=== PATIENT | female | born 1935 | race African-American/Black ===

== ENCOUNTER 2018-06-09 15:48 | Inpatient (IN) | payer MEDICARE, MEDICAID ==
[~2018-06-09] VITALS: Ht 160 cm; Wt 54.0 kg
[2018-06-09] MEDS ORDERED: PIPERACILLIN/TAZ 3.375G PREMIX 50 ML IV ONE (16:45)
[2018-06-09] MEDS ORDERED: SODIUM CHLORIDE 0.9% 1000ML BAG (SEPSIS BOLUS) IV ONE (16:45)
[2018-06-09] MEDS ORDERED: VANCOMYCIN 1 G PREMIX 200 ML IV ONE (16:45)
[2018-06-09 17:47] LABS: BASOPHILS % 1.1 % (0.0-2.0); EOSINOPHILS % 0.8 % (0.0-5.0); HEMATOCRIT. 34.9 % (36.0-48.0); HEMOGLOBIN. 11.3 g/dL (12.0-16.0); LYMPHOCYTES % 31.5 % (20.0-50.0); MEAN CORPUSCULAR HEMOGLOBIN 28.9 pg (28.0-32.0); MEAN CORPUSCULAR VOLUME 88.8 fL (81.0-99.0); MEAN PLATELET VOLUME 8.6 fl (7.4-10.4); MONOCYTES % 12.3 % (2.0-8.0); NEUTROPHILS % 54.3 % (40.0-76.0); PLATELET 249 x1000/uL (130-400); RED BLOOD CELL COUNT 3.93 mill/uL (4.2-5.4); RED CELL DISTRIBUTION WIDTH 15.1 % (11.6-14.6)
[2018-06-09 17:55] LABS: CHLORIDE 107 mEq/L (98-107); INR 1.3; PROTHROMBIN TIME 12.7 sec (9.1-11.1)
[2018-06-09] MEDS ORDERED: IPRATROPIUM/ALBUTEROL 0.5-3(2.5)MG/3ML NEB INH PRN (18:45)
[2018-06-09] MEDS ORDERED: GUAIFENESIN 200MG/10ML SUGAR FREE UDC PO PRN (18:45)
[2018-06-09] MEDS ORDERED: ONDANSETRON HCL 4MG/2ML INJ IV PRN (18:45)
[2018-06-09] MEDS ORDERED: DOCUSATE SODIUM 100MG CAPSULE PO PRN (18:45)
[2018-06-09] MEDS ORDERED: MAGNESIUM/ALUMINUM HYDROXIDE/SIMETHICONE 30ML UDC PO PRN (18:45)
[2018-06-09] MEDS ORDERED: NITROGLYCERIN 0.4MG TABLET SL SL PRN (18:45)
[2018-06-09] MEDS: MORPHINE SULFATE 4 MG/ML CPJ (NOT FOR IM USE) IV PRN (20:38)
[2018-06-09] MEDS ORDERED: ZOLPIDEM TARTRATE 5MG TABLET PO PRN (21:00)
[2018-06-09] MEDS: METOPROLOL TARTRATE 25MG TABLET PO SCH (23:13)
[2018-06-09] MEDS: LISINOPRIL 20MG TABLET PO SCH (23:13)
[2018-06-10 00:11] LABS: CREATINE KINASE MB FRACTION 1.5 ng/mL (0.5-3.6)
[2018-06-10 00:35] VITALS: BP 177/67
[2018-06-10] MEDS: CLONIDINE 0.1MG TABLET PO PRN ×2 (01:00→15:54)
[2018-06-10 02:00] VITALS: BP 118/76
[2018-06-10] MEDS: MORPHINE SULFATE 4 MG/ML CPJ (NOT FOR IM USE) IV PRN (03:03)
[2018-06-10 04:00] VITALS: BP 98/43
[2018-06-10] MEDS: LISINOPRIL 20MG TABLET PO SCH ×2 (09:00→20:33)
[2018-06-10] MEDS: METOPROLOL TARTRATE 25MG TABLET PO SCH ×2 (09:51→20:30)
[2018-06-10] MEDS: ZINC SULFATE 220 MG ( 50 ) CAPSULE PO SCH (09:51)
[2018-06-10] MEDS: ENOXAPARIN 40MG/0.4ML SYR SUBCUT SCH (09:51)
[2018-06-10] MEDS: ASCORBIC ACID 500 MG TABLET PO SCH ×2 (09:51→20:29)
[2018-06-10] MEDS: FAMOTIDINE 20MG TABLET PO SCH ×2 (09:51→20:30)
[2018-06-10 13:05] LABS: CREATINE KINASE MB FRACTION 1.8 ng/mL (0.5-3.6)
[2018-06-10 17:58] LABS: BASOPHILS % 0.5 % (0.0-2.0); HEMATOCRIT. 34.2 % (36.0-48.0); HEMOGLOBIN. 11.1 g/dL (12.0-16.0); LYMPHOCYTES % 20.8 % (20.0-50.0); MEAN CORPUSCULAR HEMOGLOBIN 28.8 pg (28.0-32.0); MEAN CORPUSCULAR VOLUME 88.8 fL (81.0-99.0); MEAN PLATELET VOLUME 8.6 fl (7.4-10.4); MONOCYTES % 10.4 % (2.0-8.0); NEUTROPHILS % 67.3 % (40.0-76.0); PLATELET 216 x1000/uL (130-400); RED BLOOD CELL COUNT 3.86 mill/uL (4.2-5.4); RED CELL DISTRIBUTION WIDTH 14.7 % (11.6-14.6)
[2018-06-10 18:10] LABS: CHLORIDE 108 mEq/L (98-107)
[2018-06-10 20:00] VITALS: BP 123/94
[2018-06-11] VITALS: BP 112/56
[2018-06-11 04:00] VITALS: BP 175/75
[2018-06-11] MEDS: TRAMADOL 50MG TABLET PO PRN ×3 (05:10→20:52)
[2018-06-11] MEDS: CLONIDINE 0.1MG TABLET PO PRN ×2 (05:13→23:28)
[2018-06-11 08:00] VITALS: BP 149/58
[2018-06-11] MEDS: LISINOPRIL 20MG TABLET PO SCH ×3 (09:00→20:52)
[2018-06-11] MEDS: FAMOTIDINE 20MG TABLET PO SCH ×2 (09:00→20:53)
[2018-06-11] MEDS: METOPROLOL TARTRATE 25MG TABLET PO SCH ×3 (09:00→20:53)
[2018-06-11] MEDS: ASCORBIC ACID 500 MG TABLET PO SCH ×2 (09:00→20:52)
[2018-06-11] MEDS: ENOXAPARIN 40MG/0.4ML SYR SUBCUT SCH ×2 (09:00→13:47)
[2018-06-11] MEDS: ZINC SULFATE 220 MG ( 50 ) CAPSULE PO SCH (09:00)
[2018-06-11 20:00] VITALS: BP 145/70
[2018-06-12] VITALS: BP 160/62
[2018-06-12 04:00] VITALS: BP 142/67
[2018-06-12] MEDS: TRAMADOL 50MG TABLET PO PRN (06:14)
[2018-06-12 08:00] VITALS: BP 116/85
[2018-06-12] MEDS ORDERED: LIDOCAINE HCL 1% 20ML VIAL (Pyxis) INJ ONE (08:10)
[2018-06-12] MEDS: ASCORBIC ACID 500 MG TABLET PO SCH ×2 (11:00→21:25)
[2018-06-12] MEDS: FAMOTIDINE 20MG TABLET PO SCH ×2 (11:00→21:25)
[2018-06-12] MEDS: ZINC SULFATE 220 MG ( 50 ) CAPSULE PO SCH (11:00)
[2018-06-12] MEDS ORDERED: IOHEXOL-350 100 ML BOTTLE ONE (11:01)
[2018-06-12] MEDS: METOPROLOL TARTRATE 25MG TABLET PO SCH ×2 (11:01→21:25)
[2018-06-12] MEDS: LISINOPRIL 20MG TABLET PO SCH ×2 (11:01→21:16)
[2018-06-12] MEDS: ENOXAPARIN 40MG/0.4ML SYR SUBCUT SCH (11:02)
[2018-06-12 12:00] VITALS: BP 174/81
[2018-06-12 16:00] VITALS: BP 183/92
[2018-06-12] MEDS: CLONIDINE 0.1MG TABLET PO PRN (17:11)
[2018-06-12 20:00] VITALS: BP 191/79
[2018-06-12] MEDS: MORPHINE SULFATE 4 MG/ML CPJ (NOT FOR IM USE) IV PRN (21:16)
[2018-06-13] VITALS (14 sets, daily range): BP systolic 87–170; BP diastolic 30–73
[2018-06-13] MEDS: MORPHINE SULFATE 4 MG/ML CPJ (NOT FOR IM USE) IV PRN (05:57)
[2018-06-13] MEDS: TRAMADOL 50MG TABLET PO PRN (08:41)
[2018-06-13] MEDS: ZINC SULFATE 220 MG ( 50 ) CAPSULE PO SCH (09:00)
[2018-06-13] MEDS: ASCORBIC ACID 500 MG TABLET PO SCH ×2 (09:00→21:00)
[2018-06-13] MEDS: FAMOTIDINE 20MG TABLET PO SCH ×2 (09:00→21:00)
[2018-06-13] MEDS: LISINOPRIL 20MG TABLET PO SCH ×2 (09:00→21:00)
[2018-06-13] MEDS: ENOXAPARIN 40MG/0.4ML SYR SUBCUT SCH (09:00)
[2018-06-13] MEDS: METOPROLOL TARTRATE 25MG TABLET PO SCH ×2 (09:00→21:00)
[2018-06-13] MEDS: DEXTROSE 5% WATER 1,000 ML IV SCH (10:18)
[2018-06-13] MEDS ORDERED: IODIXANOL 320MG/ML 100 ML BOTTLE IV ONE ×2 (13:50→15:57)
[2018-06-13] MEDS ORDERED: LIDOCAINE HCL 1% 20ML VIAL (Pyxis) INJ ONE (13:50)
[2018-06-13] MEDS ORDERED: FENTANYL CITRATE/PF 50MCG/ML 2ML VIAL ONE ×2 (14:07→15:22)
[2018-06-13] MEDS ORDERED: MIDAZOLAM HCL 2 MG/2 ML VIAL ONE ×2 (14:07→15:21)
[2018-06-13] MEDS ORDERED: IOHEXOL-300 100 ML BOTTLE ONE (14:23)
[2018-06-13] MEDS ORDERED: HEPARIN SODIUM 1,000 UNIT/1ML VIAL IV ONE (15:59)
[2018-06-13] MEDS ORDERED: LACTATED RINGERS 250 ML IV SCH (19:40)
[2018-06-13] MEDS ORDERED: LACTATED RINGERS 1,000 ML IV SCH (19:45)
[2018-06-13 19:55] LABS: MEAN CORPUSCULAR HEMOGLOBIN 29.2 pg (28.0-32.0); MEAN CORPUSCULAR VOLUME 90.5 fL (81.0-99.0); PLATELET 173 x1000/uL (130-400); RED BLOOD CELL COUNT 2.26 mill/uL (4.2-5.4); RED CELL DISTRIBUTION WIDTH 14.9 % (11.6-14.6)
[2018-06-13 20:04] LABS: HEMATOCRIT 20.4 % (36.0-48.0); HEMOGLOBIN 6.6 g/dL (12.0-16.0)
[2018-06-14] VITALS (31 sets, daily range): BP systolic 92–142; BP diastolic 43–86
[2018-06-14] MEDS: DEXTROSE 5% WATER 1,000 ML IV SCH ×2 (04:32→17:00)
[2018-06-14 06:22] LABS: HEMOGLOBIN 11.8 g/dL (12.0-16.0); MEAN CORPUSCULAR HEMOGLOBIN 29.8 pg (28.0-32.0); MEAN CORPUSCULAR VOLUME 88.4 fL (81.0-99.0); PLATELET 142 x1000/uL (130-400); RED BLOOD CELL COUNT 3.95 mill/uL (4.2-5.4); RED CELL DISTRIBUTION WIDTH 15.5 % (11.6-14.6)
[2018-06-14 07:49] LABS: CHLORIDE 107 mEq/L (98-107)
[2018-06-14] MEDS: METOPROLOL TARTRATE 25MG TABLET PO SCH ×2 (09:00→20:59)
[2018-06-14] MEDS: ASCORBIC ACID 500 MG TABLET PO SCH ×2 (09:00→21:09)
[2018-06-14] MEDS: ENOXAPARIN 40MG/0.4ML SYR SUBCUT SCH (09:00)
[2018-06-14] MEDS: ZINC SULFATE 220 MG ( 50 ) CAPSULE PO SCH (09:00)
[2018-06-14] MEDS: FAMOTIDINE 20MG TABLET PO SCH ×2 (09:00→21:09)
[2018-06-14] MEDS: LISINOPRIL 20MG TABLET PO SCH ×2 (09:00→21:00)
[2018-06-14] MEDS: MORPHINE SULFATE 4 MG/ML CPJ (NOT FOR IM USE) IV PRN (18:44)
[2018-06-15] VITALS (12 sets, daily range): BP systolic 114–157; BP diastolic 48–88
[2018-06-15] MEDS: ACETAMINOPHEN 325MG TABLET PO PRN ×2 (00:41→04:30)
[2018-06-15] MEDS: DEXTROSE 5% WATER 1,000 ML IV SCH (02:44)
[2018-06-15 04:36] LABS: CHLORIDE 98 mEq/L (98-107)
[2018-06-15 04:44] LABS: BASOPHILS % 0.2 % (0.0-2.0); EOSINOPHILS % 0.1 % (0.0-5.0); HEMOGLOBIN. 10.2 g/dL (12.0-16.0); LYMPHOCYTES % 9.2 % (20.0-50.0); MEAN CORPUSCULAR VOLUME 88.3 fL (81.0-99.0); MEAN PLATELET VOLUME 8.7 fl (7.4-10.4); MONOCYTES % 9.9 % (2.0-8.0); NEUTROPHILS % 80.6 % (40.0-76.0); PLATELET 115 x1000/uL (130-400); RED BLOOD CELL COUNT 3.39 mill/uL (4.2-5.4); RED CELL DISTRIBUTION WIDTH 15.7 % (11.6-14.6)
[2018-06-15] MEDS: LISINOPRIL 20MG TABLET PO SCH (09:25)
[2018-06-15] MEDS: FAMOTIDINE 20MG TABLET PO SCH (09:25)
[2018-06-15] MEDS: ZINC SULFATE 220 MG ( 50 ) CAPSULE PO SCH (09:25)
[2018-06-15] MEDS: METOPROLOL TARTRATE 25MG TABLET PO SCH (09:25)
[2018-06-15] MEDS: ASCORBIC ACID 500 MG TABLET PO SCH (09:25)
[2018-06-15] MEDS ORDERED: TRAMADOL 50MG TABLET PO PRN (11:00)
[2018-06-15] MEDS: ENOXAPARIN 40MG/0.4ML SYR SUBCUT SCH (11:36)
[2018-06-16] MEDS ORDERED: FAMOTIDINE 20MG TABLET PO SCH (09:00)
== END 2018-06-15 20:06 | DRG 270 ==
LOC: ER 15:48 → 8WST 17:41 → SUPCPDRO 17:46 → EDBEDREQ 17:46 → ENRESERV 22:49 → CANRESERV 22:49 → ENRESERV 23:45 → 3WST 06-13 18:00
PROVIDERS: ADMIT Internal Medicine; ATTEND Internal Medicine
PROC: 02HV33Z Insertion of Infusion Device into Superior Vena Cava, Percutaneous Approach (ICD-10-PCS; 2018-06-12)
PROC: B5181ZA Fluoroscopy of Superior Vena Cava using Low Osmolar Contrast, Guidance (ICD-10-PCS; 2018-06-12)
PROC: B548ZZA Ultrasonography of Superior Vena Cava, Guidance (ICD-10-PCS; 2018-06-12)
PROC: 04CK3ZZ Extirpation of Matter from Right Femoral Artery, Percutaneous Approach (ICD-10-PCS; principal; 2018-06-13)
PROC: 047K34Z Dilation of Right Femoral Artery with Drug-eluting Intraluminal Device, Percutaneous Approach (ICD-10-PCS; 2018-06-13)
PROC: 047D3DZ Dilation of Left Common Iliac Artery with Intraluminal Device, Percutaneous Approach (ICD-10-PCS; 2018-06-13)
PROC: 047H3DZ Dilation of Right External Iliac Artery with Intraluminal Device, Percutaneous Approach (ICD-10-PCS; 2018-06-13)
PROC: B41D1ZZ Fluoroscopy of Aorta and Bilateral Lower Extremity Arteries using Low Osmolar Contrast (ICD-10-PCS; 2018-06-13)
PROC: 30233N1 Transfusion of Nonautologous Red Blood Cells into Peripheral Vein, Percutaneous Approach (ICD-10-PCS; 2018-06-13)
DX: I70.234 Atherosclerosis of native arteries of right leg with ulceration of heel and midfoot (principal); S72.001A Fracture of unspecified part of neck of right femur, initial encounter for closed fracture; L89.323 Pressure ulcer of left buttock, stage 3; L89.313 Pressure ulcer of right buttock, stage 3; E43 Unspecified severe protein-calorie malnutrition; I74.5 Embolism and thrombosis of iliac artery; L03.115 Cellulitis of right lower limb; M86.8X7 Other osteomyelitis, ankle and foot; I70.261 Atherosclerosis of native arteries of extremities with gangrene, right leg; M06.9 Rheumatoid arthritis, unspecified; E83.52 Hypercalcemia; D63.8 Anemia in other chronic diseases classified elsewhere; Z74.01 Bed confinement status; R74.0 Nonspecific elevation of levels of transaminase and lactic acid dehydrogenase [LDH]; D69.6 Thrombocytopenia, unspecified; M24.552 Contracture, left hip; K30 Functional dyspepsia; K59.00 Constipation, unspecified; L97.519 Non-pressure chronic ulcer of other part of right foot with unspecified severity; G47.00 Insomnia, unspecified; R00.0 Tachycardia, unspecified; L89.619 Pressure ulcer of right heel, unspecified stage; M20.12 Hallux valgus (acquired), left foot; X58.XXXA Exposure to other specified factors, initial encounter; M24.551 Contracture, right hip; Z80.3 Family history of malignant neoplasm of breast; I10 Essential (primary) hypertension; Z82.0 Family history of epilepsy and other diseases of the nervous system; Z82.49 Family history of ischemic heart disease and other diseases of the circulatory system; Z87.891 Personal history of nicotine dependence; Z88.8 Allergy status to other drugs, medicaments and biological substances; Z68.21 Body mass index [BMI] 21.0-21.9, adult; Y93.89 Activity, other specified; Y92.89 Other specified places as the place of occurrence of the external cause; Y99.8 Other external cause status
CPT/HCPCS: 36415; 36569; 37221; 37227; 71045; 73620; 73721; 75635; 75710; 76937; 77001; 80048; 80061; 82550; 82553; 83036; 83605; 83880; 84134; 84145; 84443; 84484; 85027; 85347; 86850; 86900; 86920; 93005; 93306; 93923; 93970; 96365; 96366; 97162; 99285; C1714; C1725; C1760; C1769; C1874; C1876; C1885; C1887; C1893; C1894; J1644; J1650; J2250; J2270; J2543; J3010; J3370; J3490; J7030; J7040; J7070; P9016; P9021; Q9967; A4315

== ENCOUNTER 2018-07-04 08:39 | Inpatient (IN) | payer MEDICARE, MEDICAID ==
[~2018-07-04] VITALS: Ht 160 cm; Wt 52.6 kg
[2018-07-04] MEDS ORDERED: ONDANSETRON HCL 4MG/2ML INJ IV STA (09:21)
[2018-07-04] MEDS ORDERED: SODIUM CHLORIDE 0.9% 1,000 ML IV ONE (09:21)
[2018-07-04 09:45] LABS: BASOPHILS % 0.6 % (0.0-2.0); EOSINOPHILS % 1.6 % (0.0-5.0); HEMOGLOBIN. 10.2 g/dL (12.0-16.0); LYMPHOCYTES % 11.5 % (20.0-50.0); MEAN CORPUSCULAR HEMOGLOBIN 30.8 pg (28.0-32.0); MEAN CORPUSCULAR VOLUME 93.8 fL (81.0-99.0); MEAN PLATELET VOLUME 7.1 fl (7.4-10.4); NEUTROPHILS % 73.3 % (40.0-76.0); PLATELET 319 x1000/uL (130-400); RED CELL DISTRIBUTION WIDTH 20.7 % (11.6-14.6)
[2018-07-04 09:49] LABS: INR 1.2; PROTHROMBIN TIME 11.8 sec (9.1-11.1)
[2018-07-04] MEDS ORDERED: KETOROLAC 30MG/ML VIAL IV ONE (10:15)
[2018-07-04 10:28] LABS: CLARITY URINE CLOUDY (CLEAR); COLOR URINE DARK YELLOW (YELLOW); KETONES URINE 1+ (NEGATIVE); LEUKOCYTE ESTERASE URINE 3+ (NEGATIVE); NITRITE URINE POSITIVE (NEGATIVE); OCCULT BLOOD URINE 2+ (NEGATIVE); PH URINE 6.5 (4.5-8.0); PROTEIN URINE 1+ (NEGATIVE); SPECIFIC GRAVITY URINE 1.019 (1.005-1.030)
[2018-07-04 10:54] LABS: CHLORIDE 110 mEq/L (98-107)
[2018-07-04] MEDS ORDERED: VANCOMYCIN 1 G PREMIX 200 ML IV ONE (11:30)
[2018-07-04] MEDS ORDERED: PIPERACILLIN/TAZ 3.375G PREMIX 50 ML IV ONE (11:30)
[2018-07-05] MEDS ORDERED: ONDANSETRON HCL 4MG/2ML INJ IV PRN (07:30)
[2018-07-05] MEDS ORDERED: NA PHOS,M-B/NA PHOS,DI-BA ENEMA 118ML PR PRN (07:30)
[2018-07-05] MEDS ORDERED: LEVOFLOXACIN 500MG PREMIX 100 ML IV SCH ×3 (07:30→09:00)
[2018-07-05] MEDS ORDERED: MAGNESIUM/ALUMINUM HYDROXIDE/SIMETHICONE 30ML UDC PO PRN (07:30)
[2018-07-05] MEDS ORDERED: ACETAMINOPHEN 325MG TABLET PO PRN (07:30)
[2018-07-05] MEDS ORDERED: DOCUSATE SODIUM 100MG CAPSULE PO PRN (07:30)
[2018-07-05] MEDS: DEXT 5%/0.45% NACL 1000ML 1,000 ML IV SCH ×2 (08:50→12:00)
[2018-07-05 10:00] VITALS: BP 143/76
[2018-07-05] MEDS: MULTIVITAMINS,THER W-MINERALS TABLET PO SCH (11:22)
[2018-07-05] MEDS: ENOXAPARIN 40MG/0.4ML SYR SUBCUT SCH (11:22)
[2018-07-05] MEDS: TRAMADOL 50MG TABLET PO PRN ×2 (11:54→20:09)
[2018-07-05 12:00] VITALS: BP 134/59
[2018-07-05] MEDS: MEGESTROL ACETATE 400 MG/10 ML UDC PO SCH (13:49)
[2018-07-05 14:00] VITALS: BP 130/69
[2018-07-05] MEDS: VANCOMYCIN 750 MG PREMIX 150 ML IV SCH (16:22)
[2018-07-05 18:00] VITALS: BP 134/59
[2018-07-05 20:00] VITALS: BP 127/68
[2018-07-05 22:00] VITALS: BP 152/73
[2018-07-06] VITALS (17 sets, daily range): BP systolic 94–160; BP diastolic 46–82
[2018-07-06] MEDS: DEXT 5%/0.45% NACL 1000ML 1,000 ML IV SCH ×3 (01:59→23:17)
[2018-07-06] MEDS: TRAMADOL 50MG TABLET PO PRN ×2 (04:22→18:05)
[2018-07-06 06:17] LABS: BASOPHILS % 0.4 % (0.0-2.0); EOSINOPHILS % 5.5 % (0.0-5.0); HEMATOCRIT. 30.8 % (36.0-48.0); HEMOGLOBIN. 10.3 g/dL (12.0-16.0); MEAN CORPUSCULAR HEMOGLOBIN 31.5 pg (28.0-32.0); MEAN CORPUSCULAR VOLUME 94.6 fL (81.0-99.0); MEAN PLATELET VOLUME 7.3 fl (7.4-10.4); MONOCYTES % 13.8 % (2.0-8.0); NEUTROPHILS % 60.3 % (40.0-76.0); PLATELET 258 x1000/uL (130-400); RED BLOOD CELL COUNT 3.25 mill/uL (4.2-5.4); RED CELL DISTRIBUTION WIDTH 20.5 % (11.6-14.6)
[2018-07-06 06:33] LABS: CHLORIDE 110 mEq/L (98-107)
[2018-07-06] MEDS: MULTIVITAMINS,THER W-MINERALS TABLET PO SCH (09:05)
[2018-07-06] MEDS: MEGESTROL ACETATE 400 MG/10 ML UDC PO SCH (09:05)
[2018-07-06] MEDS: ENOXAPARIN 40MG/0.4ML SYR SUBCUT SCH (09:06)
[2018-07-06] MEDS: VANCOMYCIN 750 MG PREMIX 150 ML IV SCH (09:06)
[2018-07-06] MEDS: LEVOFLOXACIN 250MG PREMIX 50 ML IV SCH (11:36)
[2018-07-06] MEDS: HYDROMORPHONE HCL/PF 2MG/ML CPJ IV PRN (13:27)
[2018-07-06] MEDS: CLONIDINE 0.1MG TABLET PO PRN (18:05)
[2018-07-07] VITALS (15 sets, daily range): BP systolic 117–181; BP diastolic 54–95
[2018-07-07] MEDS: HYDROMORPHONE HCL/PF 2MG/ML CPJ IV PRN ×2 (02:25→12:32)
[2018-07-07] MEDS: VANCOMYCIN 750 MG PREMIX 150 ML IV SCH ×2 (02:25→21:39)
[2018-07-07] MEDS: TRAMADOL 50MG TABLET PO PRN ×2 (05:31→16:59)
[2018-07-07 07:08] LABS: BASOPHILS % 0.5 % (0.0-2.0); EOSINOPHILS % 2.9 % (0.0-5.0); HEMOGLOBIN. 9.4 g/dL (12.0-16.0); LYMPHOCYTES % 14.9 % (20.0-50.0); MEAN CORPUSCULAR HEMOGLOBIN 31.5 pg (28.0-32.0); MEAN CORPUSCULAR VOLUME 93.9 fL (81.0-99.0); MEAN PLATELET VOLUME 7.3 fl (7.4-10.4); MONOCYTES % 9.2 % (2.0-8.0); NEUTROPHILS % 72.5 % (40.0-76.0); PLATELET 241 x1000/uL (130-400); RED BLOOD CELL COUNT 2.98 mill/uL (4.2-5.4)
[2018-07-07 07:12] LABS: CHLORIDE 111 mEq/L (98-107)
[2018-07-07] MEDS: MEGESTROL ACETATE 400 MG/10 ML UDC PO SCH (09:14)
[2018-07-07] MEDS: ENOXAPARIN 40MG/0.4ML SYR SUBCUT SCH (09:15)
[2018-07-07] MEDS: MULTIVITAMINS,THER W-MINERALS TABLET PO SCH (09:15)
[2018-07-07] MEDS: LEVOFLOXACIN 250MG PREMIX 50 ML IV SCH (10:37)
[2018-07-07] MEDS: DEXT 5%/0.45% NACL 1000ML 1,000 ML IV SCH (11:49)
[2018-07-08] VITALS (7 sets, daily range): BP systolic 124–167; BP diastolic 63–99
[2018-07-08] MEDS: HYDROMORPHONE HCL/PF 2MG/ML CPJ IV PRN ×3 (00:33→17:11)
[2018-07-08] MEDS: DEXT 5%/0.45% NACL 1000ML 1,000 ML IV SCH ×2 (04:46→15:17)
[2018-07-08] MEDS: TRAMADOL 50MG TABLET PO PRN (04:47)
[2018-07-08] MEDS: ENOXAPARIN 40MG/0.4ML SYR SUBCUT SCH (08:35)
[2018-07-08] MEDS: MEGESTROL ACETATE 400 MG/10 ML UDC PO SCH (08:35)
[2018-07-08] MEDS: MULTIVITAMINS,THER W-MINERALS TABLET PO SCH (08:35)
[2018-07-08] MEDS: CLONIDINE 0.1MG TABLET PO PRN (08:35)
[2018-07-08] MEDS: VANCOMYCIN 750 MG PREMIX 150 ML IV SCH (17:11)
[2018-07-09] MEDS ORDERED: LEVOFLOXACIN 250MG TABLET PO SCH (11:00)
== END 2018-07-08 20:58 | DRG 871 ==
LOC: ER 08:46 → EDBEDREQ 11:58 → EDBEDREQTM 11:58 → 5EST 07-05 07:08 → SUPCPDRO 07-05 07:16 → ENRESERV 07-05 07:18 → EDBEDREQ 07-05 07:43 → 5WST 07-07 14:24
PROVIDERS: ADMIT Hospitalist; ATTEND Hospitalist
PROC: 02H633Z Insertion of Infusion Device into Right Atrium, Percutaneous Approach (ICD-10-PCS; principal; 2018-07-04)
DX: A41.9 Sepsis, unspecified organism (principal); E43 Unspecified severe protein-calorie malnutrition; N39.0 Urinary tract infection, site not specified; M06.9 Rheumatoid arthritis, unspecified; E11.621 Type 2 diabetes mellitus with foot ulcer; L97.519 Non-pressure chronic ulcer of other part of right foot with unspecified severity; J44.9 Chronic obstructive pulmonary disease, unspecified; B96.4 Proteus (mirabilis) (morganii) as the cause of diseases classified elsewhere; B96.20 Unspecified Escherichia coli [E. coli] as the cause of diseases classified elsewhere; L89.619 Pressure ulcer of right heel, unspecified stage; E11.51 Type 2 diabetes mellitus with diabetic peripheral angiopathy without gangrene; R62.7 Adult failure to thrive; Z80.3 Family history of malignant neoplasm of breast; Z82.0 Family history of epilepsy and other diseases of the nervous system; Z82.49 Family history of ischemic heart disease and other diseases of the circulatory system; Z87.891 Personal history of nicotine dependence; Z88.8 Allergy status to other drugs, medicaments and biological substances; Z68.20 Body mass index [BMI] 20.0-20.9, adult
CPT/HCPCS: 36415; 71045; 80202; 82962; 83605; 83735; 84145; 84484; 87077; 87186; 93005; 93923; 93970; 96361; 96365; 96366; 96367; 96375; 99285; J1170; J1650; J1885; J1956; J2405; J2543; J3370; J7030; J7050; A4315

== ENCOUNTER 2018-07-25 13:01 | Inpatient (IN) | payer MEDICARE, MEDICAID ==
[~2018-07-25] VITALS: Ht 160 cm; Wt 54.5 kg
[2018-07-25] MEDS ORDERED: VANCOMYCIN 1 G PREMIX 200 ML IV ONE (13:30)
[2018-07-25] MEDS ORDERED: MORPHINE SULFATE 4 MG/ML CPJ (NOT FOR IM USE) IV STA (13:30)
[2018-07-25] MEDS ORDERED: ONDANSETRON HCL 4MG/2ML INJ IV STA (13:30)
[2018-07-25] MEDS ORDERED: PIPERACILLIN/TAZ 3.375G PREMIX 50 ML IV ONE (13:30)
[2018-07-25] MEDS ORDERED: SODIUM CHLORIDE 0.9% 1,000 ML IV ONE (13:30)
[2018-07-25 14:38] LABS: CHLORIDE 110 mEq/L (98-107); HEMATOCRIT. 32.7 % (36.0-48.0); HEMOGLOBIN. 10.9 g/dL (12.0-16.0); MEAN CORPUSCULAR HEMOGLOBIN 32.1 pg (28.0-32.0); MEAN CORPUSCULAR VOLUME 96.7 fL (81.0-99.0); PLATELET 383 x1000/uL (130-400); RED BLOOD CELL COUNT 3.38 mill/uL (4.2-5.4); RED CELL DISTRIBUTION WIDTH 22.2 % (11.6-14.6)
[2018-07-25 14:51] LABS: PLATELET ESTIMATE NORMAL
[2018-07-25 14:51] LABS: CLARITY URINE CLOUDY (CLEAR); COLOR URINE AMBER (YELLOW); KETONES URINE 1+ (NEGATIVE); LEUKOCYTE ESTERASE URINE 2+ (NEGATIVE); NITRITE URINE NEGATIVE (NEGATIVE); OCCULT BLOOD URINE 2+ (NEGATIVE); PH URINE 5.5 (4.5-8.0); PROTEIN URINE TRACE (NEGATIVE); SPECIFIC GRAVITY URINE 1.025 (1.005-1.030)
[2018-07-25 15:22] LABS: INR 1.2; PROTHROMBIN TIME 12.2 sec (9.6-11.0)
[2018-07-25] MEDS ORDERED: SODIUM CHLORIDE 0.9% 1,000 ML IV SCH (16:05)
[2018-07-25] MEDS ORDERED: CLONIDINE 0.1MG TABLET PO PRN (16:15)
[2018-07-25] MEDS ORDERED: GUAIFENESIN 200MG/10ML SUGAR FREE UDC PO PRN (16:15)
[2018-07-25] MEDS ORDERED: MAGNESIUM/ALUMINUM HYDROXIDE/SIMETHICONE 30ML UDC PO PRN (16:15)
[2018-07-25] MEDS ORDERED: DOCUSATE SODIUM 100MG CAPSULE PO PRN (16:15)
[2018-07-25] MEDS ORDERED: ONDANSETRON HCL 4MG/2ML INJ IV PRN (16:15)
[2018-07-25] MEDS ORDERED: PIPERACILLIN/TAZ 3.375G PREMIX 50 ML IV SCH (16:15)
[2018-07-25] MEDS ORDERED: ENOXAPARIN 40MG/0.4ML SYR SUBCUT SCH (16:15)
[2018-07-25] MEDS ORDERED: SODIUM POLYSTYRENE SULFONATE 15 G/60 ML BOT PO ONE (16:15)
[2018-07-25] MEDS ORDERED: NITROGLYCERIN 0.4MG TABLET SL SL PRN (16:15)
[2018-07-25] MEDS: ACETAMINOPHEN 325MG TABLET PO PRN (16:57)
[2018-07-25 16:58] LABS: FOLIC ACID (FOLATE) SERUM 6.3 ng/mL (>5.38)
[2018-07-25] MEDS: BLOOD SUGAR DIAGNOSTIC STRIP TEST SCH ×2 (17:00→21:37)
[2018-07-25] MEDS: INSULIN LISPRO 100 UNITS/ML SUBCUT SCH ×2 (18:20→21:00)
[2018-07-25] MEDS ORDERED: FAMOTIDINE 20MG TABLET PO NR (20:15)
[2018-07-25] MEDS ORDERED: ASCORBIC ACID 500 MG TABLET PO NR (20:30)
[2018-07-25] MEDS ORDERED: ZOLPIDEM TARTRATE 5MG TABLET PO PRN (21:00)
[2018-07-25] MEDS ORDERED: NA PHOS,M-B/NA PHOS,DI-BA ENEMA 118ML PR PRN (21:00)
[2018-07-25] MEDS: DEXTROSE 50% WATER 50ML SYRINGE IV PRN (21:37)
[2018-07-25] MEDS: SODIUM CHLORIDE 0.9% 1,000 ML IV SCH (23:23)
[2018-07-25 23:49] VITALS: BP 145/42
[2018-07-26] VITALS (17 sets, daily range): BP systolic 99–174; BP diastolic 43–139
[2018-07-26] MEDS ORDERED: SODIUM POLYSTYRENE SULFONATE 15 G/60 ML BOT PO NR
[2018-07-26 00:45] LABS: CREATINE KINASE MB FRACTION 1.5 ng/mL (0.5-3.6)
[2018-07-26] MEDS ORDERED: VANCOMYCIN 750 MG PREMIX 150 ML IV SCH (02:00)
[2018-07-26] MEDS: TRAMADOL 50MG TABLET PO PRN ×2 (04:16→21:08)
[2018-07-26 07:36] LABS: CREATINE KINASE MB FRACTION 2.3 ng/mL (0.5-3.6)
[2018-07-26] MEDS ORDERED: DEXTROSE 50% WATER 50ML SYRINGE IV PRN (07:45)
[2018-07-26] MEDS ORDERED: INSULIN LISPRO 100 UNITS/ML SUBCUT SCH (08:00)
[2018-07-26] MEDS: INSULIN LISPRO 100 UNITS/ML SUBCUT SCH ×4 (08:00→21:00)
[2018-07-26] MEDS: BLOOD SUGAR DIAGNOSTIC STRIP TEST SCH ×4 (08:19→21:01)
[2018-07-26] MEDS: PIPERACILLIN/TAZ 3.375G PREMIX 50 ML IV SCH ×3 (09:00→15:45)
[2018-07-26] MEDS: ZINC SULFATE 220 MG ( 50 ) CAPSULE PO SCH (09:00)
[2018-07-26] MEDS ORDERED: FAMOTIDINE 20MG TABLET PO SCH (09:00)
[2018-07-26] MEDS: ASPIRIN 325MG EC TABLET PO SCH (09:00)
[2018-07-26] MEDS: ASCORBIC ACID 500 MG TABLET PO SCH ×2 (09:00→21:01)
[2018-07-26] MEDS: ENOXAPARIN 30MG/0.3ML SYR SUBCUT SCH (10:17)
[2018-07-26 11:45] LABS: CHLORIDE 113 mEq/L (98-107)
[2018-07-26] MEDS ORDERED: BLOOD SUGAR DIAGNOSTIC STRIP TEST SCH (12:30)
[2018-07-26 13:05] LABS: BASOPHILS % 0.6 % (0.0-2.0); EOSINOPHILS % 0.3 % (0.0-5.0); HEMOGLOBIN. 9.5 g/dL (12.0-16.0); LYMPHOCYTES % 16.4 % (20.0-50.0); MEAN CORPUSCULAR HEMOGLOBIN 32.4 pg (28.0-32.0); MEAN CORPUSCULAR VOLUME 99.3 fL (81.0-99.0); MEAN PLATELET VOLUME 8.5 fl (7.4-10.4); MONOCYTES % 12.4 % (2.0-8.0); NEUTROPHILS % 70.3 % (40.0-76.0); PLATELET 255 x1000/uL (130-400); RED BLOOD CELL COUNT 2.93 mill/uL (4.2-5.4); RED CELL DISTRIBUTION WIDTH 22.1 % (11.6-14.6)
[2018-07-26] MEDS: DEXTROSE 50% WATER 50ML SYRINGE IV PRN (18:24)
[2018-07-26] MEDS: VANCOMYCIN 500 MG PREMIX 100 ML IV SCH (21:01)
[2018-07-26] MEDS: SODIUM CHLORIDE 0.9% 1,000 ML IV SCH (21:01)
[2018-07-27] VITALS (12 sets, daily range): BP systolic 111–157; BP diastolic 47–99
[2018-07-27] MEDS: PIPERACILLIN/TAZ 3.375G PREMIX 50 ML IV SCH ×3 (00:46→15:52)
[2018-07-27] MEDS: MORPHINE SULFATE 4 MG/ML CPJ (NOT FOR IM USE) IV PRN (00:47)
[2018-07-27] MEDS: INSULIN LISPRO 100 UNITS/ML SUBCUT SCH ×4 (08:00→21:00)
[2018-07-27] MEDS: DEXTROSE 50% WATER 50ML SYRINGE IV PRN (08:03)
[2018-07-27] MEDS: BLOOD SUGAR DIAGNOSTIC STRIP TEST SCH ×4 (08:04→21:46)
[2018-07-27] MEDS: ENOXAPARIN 30MG/0.3ML SYR SUBCUT SCH (09:16)
[2018-07-27] MEDS: TRAMADOL 50MG TABLET PO PRN ×2 (09:17→21:47)
[2018-07-27] MEDS: ASCORBIC ACID 500 MG TABLET PO SCH ×2 (09:17→21:47)
[2018-07-27] MEDS: ASPIRIN 325MG EC TABLET PO SCH (09:17)
[2018-07-27] MEDS: ZINC SULFATE 220 MG ( 50 ) CAPSULE PO SCH (09:17)
[2018-07-27 12:47] LABS: HEMATOCRIT. 26.3 % (36.0-48.0); HEMOGLOBIN. 8.7 g/dL (12.0-16.0); MEAN CORPUSCULAR HEMOGLOBIN 32.5 pg (28.0-32.0); MEAN CORPUSCULAR VOLUME 98.7 fL (81.0-99.0); MEAN PLATELET VOLUME 7.7 fl (7.4-10.4); PLATELET 190 x1000/uL (130-400); RED BLOOD CELL COUNT 2.66 mill/uL (4.2-5.4); RED CELL DISTRIBUTION WIDTH 21.6 % (11.6-14.6)
[2018-07-27] MEDS: VANCOMYCIN 500 MG PREMIX 100 ML IV SCH (13:05)
[2018-07-27 13:06] LABS: PLATELET ESTIMATE NORMAL
[2018-07-27 13:07] LABS: CHLORIDE 117 mEq/L (98-107)
[2018-07-27] MEDS: SODIUM CHLORIDE 0.9% 1,000 ML IV SCH ×2 (15:15→16:35)
[2018-07-27] MEDS: PIPERACILLIN/TAZ 2.25G PREMIX 50 ML IV SCH (21:46)
[2018-07-28] VITALS (12 sets, daily range): BP systolic 137–169; BP diastolic 60–86
[2018-07-28] MEDS: SODIUM CHLORIDE 0.9% 1,000 ML IV SCH ×2 (04:35→19:47)
[2018-07-28] MEDS: PIPERACILLIN/TAZ 2.25G PREMIX 50 ML IV SCH ×4 (05:33→21:14)
[2018-07-28] MEDS: MORPHINE SULFATE 4 MG/ML CPJ (NOT FOR IM USE) IV PRN ×2 (05:40→17:21)
[2018-07-28] MEDS: INSULIN LISPRO 100 UNITS/ML SUBCUT SCH ×4 (07:40→21:00)
[2018-07-28] MEDS: BLOOD SUGAR DIAGNOSTIC STRIP TEST SCH ×4 (07:40→21:00)
[2018-07-28] MEDS: ENOXAPARIN 30MG/0.3ML SYR SUBCUT SCH (08:06)
[2018-07-28] MEDS: ZINC SULFATE 220 MG ( 50 ) CAPSULE PO SCH (08:06)
[2018-07-28] MEDS: ASCORBIC ACID 500 MG TABLET PO SCH ×2 (08:06→19:48)
[2018-07-28] MEDS: ASPIRIN 325MG EC TABLET PO SCH (08:06)
[2018-07-28] MEDS: VANCOMYCIN 500 MG PREMIX 100 ML IV SCH (08:06)
[2018-07-28] MEDS: PANTOPRAZOLE 40MG DR TABLET PO SCH (13:02)
[2018-07-29] VITALS (12 sets, daily range): BP systolic 126–161; BP diastolic 55–94
[2018-07-29] MEDS: VANCOMYCIN 500 MG PREMIX 100 ML IV SCH ×2 (01:00→20:47)
[2018-07-29] MEDS: PIPERACILLIN/TAZ 2.25G PREMIX 50 ML IV SCH ×4 (03:21→23:26)
[2018-07-29] MEDS: BLOOD SUGAR DIAGNOSTIC STRIP TEST SCH ×4 (07:30→21:00)
[2018-07-29] MEDS: INSULIN LISPRO 100 UNITS/ML SUBCUT SCH ×4 (08:00→21:00)
[2018-07-29] MEDS: ASPIRIN 325MG EC TABLET PO SCH (08:51)
[2018-07-29] MEDS: ZINC SULFATE 220 MG ( 50 ) CAPSULE PO SCH (08:51)
[2018-07-29] MEDS: PANTOPRAZOLE 40MG DR TABLET PO SCH (08:51)
[2018-07-29] MEDS: ASCORBIC ACID 500 MG TABLET PO SCH ×2 (08:51→20:47)
[2018-07-29] MEDS: ENOXAPARIN 40MG/0.4ML SYR SUBCUT SCH (09:04)
[2018-07-29] MEDS: SODIUM CHLORIDE 0.9% 1,000 ML IV SCH (11:33)
[2018-07-29] MEDS: MORPHINE SULFATE 4 MG/ML CPJ (NOT FOR IM USE) IV PRN (23:32)
[2018-07-30] VITALS (12 sets, daily range): BP systolic 126–158; BP diastolic 32–99
[2018-07-30] MEDS: SODIUM CHLORIDE 0.9% 1,000 ML IV SCH ×3 (01:13→20:50)
[2018-07-30] MEDS: PIPERACILLIN/TAZ 2.25G PREMIX 50 ML IV SCH ×4 (04:26→20:49)
[2018-07-30] MEDS: PANTOPRAZOLE 40MG DR TABLET PO SCH (06:45)
[2018-07-30] MEDS: INSULIN LISPRO 100 UNITS/ML SUBCUT SCH ×4 (08:00→21:00)
[2018-07-30] MEDS: ZINC SULFATE 220 MG ( 50 ) CAPSULE PO SCH (08:19)
[2018-07-30] MEDS: ASCORBIC ACID 500 MG TABLET PO SCH ×2 (08:19→20:47)
[2018-07-30] MEDS: ENOXAPARIN 40MG/0.4ML SYR SUBCUT SCH (08:19)
[2018-07-30] MEDS: ASPIRIN 325MG EC TABLET PO SCH (08:20)
[2018-07-30] MEDS: BLOOD SUGAR DIAGNOSTIC STRIP TEST SCH ×4 (08:29→21:00)
[2018-07-30] MEDS: MORPHINE SULFATE 4 MG/ML CPJ (NOT FOR IM USE) IV PRN (08:38)
[2018-07-30] MEDS ORDERED: MORPHINE SULFATE 4 MG/ML CPJ (NOT FOR IM USE) IV PRN ×3 (12:30→17:00)
[2018-07-30] MEDS: VANCOMYCIN 750 MG PREMIX 150 ML IV SCH (14:02)
[2018-07-31] VITALS (9 sets, daily range): BP systolic 115–164; BP diastolic 60–100
[2018-07-31] MEDS: PIPERACILLIN/TAZ 2.25G PREMIX 50 ML IV SCH ×4 (03:03→22:02)
[2018-07-31 06:40] LABS: INR 1.5; PARTIAL THROMBOPLASTIN TIME 42.9 sec (23.4-31.0); PROTHROMBIN TIME 15.7 sec (9.6-11.0)
[2018-07-31 07:15] LABS: CHLORIDE 117 mEq/L (98-107)
[2018-07-31] MEDS: PANTOPRAZOLE 40MG DR TABLET PO SCH (07:30)
[2018-07-31] MEDS: BLOOD SUGAR DIAGNOSTIC STRIP TEST SCH ×4 (07:30→21:00)
[2018-07-31] MEDS: INSULIN LISPRO 100 UNITS/ML SUBCUT SCH ×4 (08:00→21:00)
[2018-07-31] MEDS: ASCORBIC ACID 500 MG TABLET PO SCH ×2 (09:00→22:21)
[2018-07-31] MEDS: ZINC SULFATE 220 MG ( 50 ) CAPSULE PO SCH (09:00)
[2018-07-31] MEDS ORDERED: DEXT 5%/0.45% NACL 1000ML 1,000 ML IV SCH (09:00)
[2018-07-31] MEDS: ASPIRIN 325MG EC TABLET PO SCH (09:00)
[2018-07-31 14:12] LABS: HEMOGLOBIN 9.1 g/dL (12.0-16.0)
[2018-07-31] MEDS ORDERED: MIDAZOLAM HCL 5 MG/5 ML VIAL ONE (14:35)
[2018-07-31] MEDS ORDERED: FENTANYL CITRATE/PF 50MCG/ML 2ML VIAL ONE (14:36)
[2018-07-31] MEDS ORDERED: MIDAZOLAM HCL 5 MG/5 ML VIAL IV PRN (14:44)
[2018-07-31] MEDS ORDERED: FENTANYL CITRATE/PF 50MCG/ML 2ML VIAL IV PRN (14:45)
[2018-07-31] MEDS ORDERED: BACTERIOSTATIC SODIUM CHLORIDE 0.9% 30ML VIAL IJ ONE (14:56)
[2018-07-31] MEDS: DEXTROSE 50% WATER 50ML SYRINGE IV PRN (15:53)
[2018-07-31] MEDS ORDERED: DEXT 5%/0.45% NACL 500ML 500 ML IV ONE (16:00)
[2018-07-31] MEDS ORDERED: AMIODARONE HCL 900 MG in DEXT 5% WATER 500 ML IV SCH (16:30)
[2018-07-31] MEDS ORDERED: AMIODARONE HCL 150 MG in DEXT 5% WATER 100 ML IV NR (16:30)
[2018-07-31] MEDS: VANCOMYCIN 750 MG PREMIX 150 ML IV SCH (18:28)
[2018-08-01] VITALS (16 sets, daily range): BP systolic 112–160; BP diastolic 58–95
[2018-08-01] MEDS: MORPHINE SULFATE 4 MG/ML CPJ (NOT FOR IM USE) IV PRN ×3 (03:23→20:33)
[2018-08-01] MEDS: PIPERACILLIN/TAZ 2.25G PREMIX 50 ML IV SCH ×4 (04:43→22:02)
[2018-08-01 05:34] LABS: BASOPHILS % 0.3 % (0.0-2.0); EOSINOPHILS % 1.2 % (0.0-5.0); HEMATOCRIT. 21.5 % (36.0-48.0); HEMOGLOBIN. 7.3 g/dL (12.0-16.0); MEAN CORPUSCULAR HEMOGLOBIN 32.6 pg (28.0-32.0); MEAN CORPUSCULAR VOLUME 95.8 fL (81.0-99.0); MEAN PLATELET VOLUME 8.2 fl (7.4-10.4); MONOCYTES % 9.5 % (2.0-8.0); PLATELET 148 x1000/uL (130-400); RED BLOOD CELL COUNT 2.25 mill/uL (4.2-5.4); RED CELL DISTRIBUTION WIDTH 20.7 % (11.6-14.6)
[2018-08-01 06:17] LABS: CHLORIDE 114 mEq/L (98-107)
[2018-08-01] MEDS: PANTOPRAZOLE 40MG DR TABLET PO SCH (07:30)
[2018-08-01] MEDS: INSULIN LISPRO 100 UNITS/ML SUBCUT SCH ×4 (08:00→21:00)
[2018-08-01] MEDS ORDERED: POTASSIUM CHLORIDE 20MEQ/PACKET PO NR (08:00)
[2018-08-01] MEDS: BLOOD SUGAR DIAGNOSTIC STRIP TEST SCH ×4 (08:06→21:00)
[2018-08-01] MEDS: ZINC SULFATE 220 MG ( 50 ) CAPSULE PO SCH (09:00)
[2018-08-01] MEDS ORDERED: POTASSIUM CHLORIDE INJ 40 MEQ in DEXT 5% WATER 500 ML IV NR (09:00)
[2018-08-01] MEDS: ASCORBIC ACID 500 MG TABLET PO SCH ×2 (09:00→21:56)
[2018-08-01] MEDS: ASPIRIN 325MG EC TABLET PO SCH (09:00)
[2018-08-01] MEDS ORDERED: MAGNESIUM 2 G PREMIX 50 ML IV SCH (11:00)
[2018-08-01] MEDS: AMIODARONE HCL 900 MG in DEXT 5% WATER 500 ML IV SCH (13:33)
[2018-08-01] MEDS: VANCOMYCIN 750 MG PREMIX 150 ML IV SCH (14:52)
[2018-08-01 20:45] LABS: HEMATOCRIT 28.3 % (36.0-48.0); HEMOGLOBIN 9.5 g/dL (12.0-16.0)
[2018-08-01 20:55] LABS: INR 1.6; PROTHROMBIN TIME 16.4 sec (9.6-11.0)
[2018-08-02] VITALS (12 sets, daily range): BP systolic 117–164; BP diastolic 40–80
[2018-08-02] MEDS: MORPHINE SULFATE 4 MG/ML CPJ (NOT FOR IM USE) IV PRN ×5 (00:22→21:03)
[2018-08-02] MEDS: PIPERACILLIN/TAZ 2.25G PREMIX 50 ML IV SCH ×4 (04:13→21:03)
[2018-08-02] MEDS: PANTOPRAZOLE 40MG DR TABLET PO SCH (07:30)
[2018-08-02] MEDS: BLOOD SUGAR DIAGNOSTIC STRIP TEST SCH ×4 (07:30→21:03)
[2018-08-02 07:37] LABS: CHLORIDE 114 mEq/L (98-107)
[2018-08-02] MEDS: INSULIN LISPRO 100 UNITS/ML SUBCUT SCH ×4 (08:00→21:00)
[2018-08-02 08:36] LABS: BASOPHILS % 0.5 % (0.0-2.0); EOSINOPHILS % 1.3 % (0.0-5.0); HEMATOCRIT. 30.1 % (36.0-48.0); LYMPHOCYTES % 20.7 % (20.0-50.0); MEAN CORPUSCULAR HEMOGLOBIN 30.7 pg (28.0-32.0); MEAN CORPUSCULAR VOLUME 92.5 fL (81.0-99.0); MEAN PLATELET VOLUME 7.8 fl (7.4-10.4); MONOCYTES % 8.2 % (2.0-8.0); NEUTROPHILS % 69.3 % (40.0-76.0); PLATELET 129 x1000/uL (130-400); RED BLOOD CELL COUNT 3.26 mill/uL (4.2-5.4); RED CELL DISTRIBUTION WIDTH 22.8 % (11.6-14.6)
[2018-08-02] MEDS: ZINC SULFATE 220 MG ( 50 ) CAPSULE PO SCH (08:36)
[2018-08-02] MEDS: ASCORBIC ACID 500 MG TABLET PO SCH ×2 (08:36→21:00)
[2018-08-02] MEDS: ASPIRIN 325MG EC TABLET PO SCH (08:36)
[2018-08-02] MEDS: DEXTROSE 50% WATER 50ML SYRINGE IV PRN ×2 (09:09→14:15)
[2018-08-02] MEDS: AMIODARONE HCL 900 MG in DEXT 5% WATER 500 ML IV SCH (11:49)
[2018-08-02] MEDS: DEXT 5%/0.9% NACL 1,000 ML IV SCH (13:58)
[2018-08-02] MEDS: VANCOMYCIN 750 MG PREMIX 150 ML IV SCH (14:09)
[2018-08-03] VITALS (22 sets, daily range): BP systolic 138–170; BP diastolic 59–98
[2018-08-03] MEDS: DEXT 5%/0.9% NACL 1,000 ML IV SCH ×3 (00:15→19:18)
[2018-08-03] MEDS: MORPHINE SULFATE 4 MG/ML CPJ (NOT FOR IM USE) IV PRN ×4 (01:08→21:54)
[2018-08-03] MEDS: PIPERACILLIN/TAZ 2.25G PREMIX 50 ML IV SCH ×4 (03:09→21:55)
[2018-08-03] MEDS: PANTOPRAZOLE 40MG DR TABLET PO SCH (07:30)
[2018-08-03] MEDS: INSULIN LISPRO 100 UNITS/ML SUBCUT SCH ×4 (08:00→20:36)
[2018-08-03] MEDS: ASPIRIN 325MG EC TABLET PO SCH (08:06)
[2018-08-03] MEDS: ZINC SULFATE 220 MG ( 50 ) CAPSULE PO SCH (08:06)
[2018-08-03] MEDS: BLOOD SUGAR DIAGNOSTIC STRIP TEST SCH ×4 (08:06→20:35)
[2018-08-03] MEDS: ASCORBIC ACID 500 MG TABLET PO SCH ×2 (08:06→20:37)
[2018-08-03 09:33] LABS: BASOPHILS % 0.4 % (0.0-2.0); EOSINOPHILS % 0.8 % (0.0-5.0); HEMATOCRIT. 29.8 % (36.0-48.0); HEMOGLOBIN. 9.8 g/dL (12.0-16.0); LYMPHOCYTES % 18.3 % (20.0-50.0); MEAN CORPUSCULAR HEMOGLOBIN 30.5 pg (28.0-32.0); MEAN CORPUSCULAR VOLUME 93.1 fL (81.0-99.0); MEAN PLATELET VOLUME 8.1 fl (7.4-10.4); NEUTROPHILS % 73.5 % (40.0-76.0); PLATELET 75 x1000/uL (130-400); RED CELL DISTRIBUTION WIDTH 22.1 % (11.6-14.6)
[2018-08-03 09:44] LABS: CHLORIDE 119 mEq/L (98-107)
[2018-08-03] MEDS: AMIODARONE HCL 900 MG in DEXT 5% WATER 500 ML IV SCH (10:03)
[2018-08-03] MEDS ORDERED: PHYTONADIONE 10MG/ML AMP SUBCUT SCH ×2 (10:45→18:00)
[2018-08-03 11:15] LABS: INR 1.7; PARTIAL THROMBOPLASTIN TIME 51.2 sec (23.4-31.0); PROTHROMBIN TIME 16.9 sec (9.6-11.0)
[2018-08-03] MEDS ORDERED: METHYLPREDNISOLONE SOD SUCC 125 MG/2 ML VIAL IV PRN (14:00)
[2018-08-03] MEDS: DEXTROSE 50% WATER 50ML SYRINGE IV PRN (17:36)
[2018-08-03] MEDS: VANCOMYCIN 750 MG PREMIX 150 ML IV SCH (19:18)
[2018-08-03 19:27] LABS: INR 1.4; PROTHROMBIN TIME 14.3 sec (9.6-11.0)
[2018-08-04] VITALS (15 sets, daily range): BP systolic 91–158; BP diastolic 19–108
[2018-08-04] MEDS: MORPHINE SULFATE 4 MG/ML CPJ (NOT FOR IM USE) IV PRN ×2 (03:52→21:06)
[2018-08-04] MEDS: PIPERACILLIN/TAZ 2.25G PREMIX 50 ML IV SCH ×4 (03:52→22:41)
[2018-08-04] MEDS: DEXT 5%/0.9% NACL 1,000 ML IV SCH ×2 (03:52→21:05)
[2018-08-04] MEDS ORDERED: PHYTONADIONE 10MG/ML AMP SUBCUT SCH (06:00)
[2018-08-04 07:05] LABS: BASOPHILS % 0.8 % (0.0-2.0); EOSINOPHILS % 0.1 % (0.0-5.0); HEMATOCRIT. 23.1 % (36.0-48.0); HEMOGLOBIN. 7.9 g/dL (12.0-16.0); LYMPHOCYTES % 10.7 % (20.0-50.0); MEAN CORPUSCULAR HEMOGLOBIN 31.5 pg (28.0-32.0); MEAN CORPUSCULAR VOLUME 92.2 fL (81.0-99.0); MONOCYTES % 6.5 % (2.0-8.0); NEUTROPHILS % 81.9 % (40.0-76.0); PLATELET 71 x1000/uL (130-400); RED CELL DISTRIBUTION WIDTH 21.9 % (11.6-14.6)
[2018-08-04 07:09] LABS: INR 1.6; PROTHROMBIN TIME 16.4 sec (9.6-11.0)
[2018-08-04 07:12] LABS: CHLORIDE 115 mEq/L (98-107)
[2018-08-04] MEDS: PANTOPRAZOLE 40MG DR TABLET PO SCH (07:30)
[2018-08-04] MEDS: BLOOD SUGAR DIAGNOSTIC STRIP TEST SCH ×4 (07:30→21:07)
[2018-08-04] MEDS: INSULIN LISPRO 100 UNITS/ML SUBCUT SCH ×4 (08:00→21:00)
[2018-08-04] MEDS: ASPIRIN 325MG EC TABLET PO SCH (09:00)
[2018-08-04] MEDS: ZINC SULFATE 220 MG ( 50 ) CAPSULE PO SCH (09:00)
[2018-08-04] MEDS: ASCORBIC ACID 500 MG TABLET PO SCH ×2 (09:00→21:06)
[2018-08-04] MEDS ORDERED: POTASSIUM CHLORIDE 20MEQ/PACKET PO NR ×2 (09:15→16:30)
[2018-08-04] MEDS ORDERED: POTASSIUM CHLORIDE INJ 40 MEQ in DEXT 5% WATER 250 ML IV NR (09:30)
[2018-08-04] MEDS: VANCOMYCIN 750 MG PREMIX 150 ML IV SCH (14:54)
[2018-08-04 16:46] LABS: INR 1.8; PROTHROMBIN TIME 17.6 sec (9.6-11.0)
[2018-08-04] MEDS ORDERED: PHYTONADIONE 10MG/ML AMP SUBCUT NR (17:00)
[2018-08-04] MEDS: AMIODARONE HCL 900 MG in DEXT 5% WATER 500 ML IV SCH (18:56)
[2018-08-05] VITALS (35 sets, daily range): BP systolic 57–238; BP diastolic 29–132
[2018-08-05] MEDS: DEXT 5%/0.9% NACL 1,000 ML IV SCH (01:13)
[2018-08-05] MEDS: PIPERACILLIN/TAZ 2.25G PREMIX 50 ML IV SCH ×2 (04:05→09:25)
[2018-08-05 06:55] LABS: BASOPHILS % 0.1 % (0.0-2.0); EOSINOPHILS % 0.1 % (0.0-5.0); HEMATOCRIT. 24.8 % (36.0-48.0); HEMOGLOBIN. 8.1 g/dL (12.0-16.0); LYMPHOCYTES % 13.2 % (20.0-50.0); MEAN CORPUSCULAR HEMOGLOBIN 31.2 pg (28.0-32.0); MEAN CORPUSCULAR VOLUME 95.5 fL (81.0-99.0); MEAN PLATELET VOLUME 8.4 fl (7.4-10.4); MONOCYTES % 4.1 % (2.0-8.0); NEUTROPHILS % 82.5 % (40.0-76.0); PLATELET 62 x1000/uL (130-400); RED CELL DISTRIBUTION WIDTH 22.8 % (11.6-14.6)
[2018-08-05 07:03] LABS: INR 1.8; PARTIAL THROMBOPLASTIN TIME 50.7 sec (23.4-31.0)
[2018-08-05 07:31] LABS: CHLORIDE 118 mEq/L (98-107)
[2018-08-05] MEDS: PANTOPRAZOLE 40MG DR TABLET PO SCH (07:43)
[2018-08-05] MEDS: BLOOD SUGAR DIAGNOSTIC STRIP TEST SCH ×4 (07:44→21:30)
[2018-08-05] MEDS: INSULIN LISPRO 100 UNITS/ML SUBCUT SCH ×5 (07:44→21:00)
[2018-08-05] MEDS: ZINC SULFATE 220 MG ( 50 ) CAPSULE PO SCH (09:24)
[2018-08-05] MEDS: ASCORBIC ACID 500 MG TABLET PO SCH ×2 (09:24→21:00)
[2018-08-05] MEDS ORDERED: PHYTONADIONE 10MG/ML AMP SUBCUT NR (10:30)
[2018-08-05] MEDS: SODIUM BICARBONATE 100 MEQ in DEXTROSE 5% WATER 1,000 ML IV SCH ×2 (12:45→22:30)
[2018-08-05] MEDS ORDERED: SODIUM CHLORIDE 0.9% 2,000 ML IV STA (13:30)
[2018-08-05] MEDS: MEROPENEM 1,000 MG in SODIUM CHLORIDE 0.9% 100 ML IV SCH (15:06)
[2018-08-05] MEDS: VANCOMYCIN 750 MG PREMIX 150 ML IV SCH (15:22)
[2018-08-05] MEDS ORDERED: DOPAMINE 400MG/250ML PREMIX 250 ML IV ONE (18:00)
[2018-08-05] MEDS ORDERED: SODIUM BICARBONATE 7.5% 0.9 MEQ/ML 50ML SYR IV ONE (18:15)
[2018-08-05] MEDS ORDERED: EPINEPHRINE 0.1MG/ML (1:10,000) 10ML SYR ONE (18:15)
[2018-08-05] MEDS: SODIUM CHLORIDE 0.9% 1,000 ML IV NR ×2 (18:37→19:38)
[2018-08-05 19:06] LABS: BG BASE EXCESS -21.2 mmol/L (-2.0-2.0); BG CARBOXYHEMOGLOBIN 0.9 % (0.5-1.5); BG DEOXYHEMOGLOBIN 1.4 % (0.0-5.0); BG FRACTION INSPIRED OXYGEN 100; BG HCO3 ACT 6.6 mmol/L (22.0-26.0); BG METHEMOGLOBIN 0.3 % (0.0-1.5); BG OXYGEN SATURATION 98.6 % (92.0-98.5); BG OXYHEMOGLOBIN 97.4 % (94.0-97.0); BG PCO2 21.6 mmHg (35.0-45.0); BG PH 7.101 (7.350-7.450); BG PO2 203.6 mmHg (75.0-100.0); BG SAMPLE SITE RIGHT RADIAL; BG TIDAL VOLUME(mL) 450 mL; BG TOTAL HEMOGLOBIN 6.9 g/dL (12.0-18.0); BG VENT MODE VENT - A/C; BG VENT RATE 12 set
[2018-08-05] MEDS: DOPAMINE 800MG PREMIX (DOUBLE) 250 ML IV PRN (19:27)
[2018-08-05] MEDS ORDERED: NOREPINEPHRINE 4MG/250ML PMX 250 ML IV PRN (19:30)
[2018-08-05] MEDS ORDERED: SODIUM BICARBONATE 8.4% 1 MEQ/ML 50ML SYR IV SCH (19:30)
[2018-08-05] MEDS: PROPOFOL 10MG/ML 100ML 100 ML IV PRN (20:00)
[2018-08-05 20:06] LABS: CHLORIDE 118 mEq/L (98-107)
[2018-08-05 20:07] LABS: HEMATOCRIT 21.5 % (36.0-48.0); MEAN CORPUSCULAR VOLUME 97.3 fL (81.0-99.0); RED BLOOD CELL COUNT 2.21 mill/uL (4.2-5.4); RED CELL DISTRIBUTION WIDTH 22.9 % (11.6-14.6)
[2018-08-05] MEDS ORDERED: NOREPINEPHRINE 4 MG in DEXTROSE 5% WATER 250 ML IV PRN (20:15)
[2018-08-05 20:18] LABS: HEMOGLOBIN 6.8 g/dL (12.0-16.0)
[2018-08-05] MEDS: ALBUMIN HUMAN 25GM/100ML (25%) IV SCH (21:09)
[2018-08-05 22:43] LABS: BG BASE EXCESS -14.3 mmol/L (-2.0-2.0); BG CARBOXYHEMOGLOBIN 0.3 % (0.5-1.5); BG DEOXYHEMOGLOBIN 6.1 % (0.0-5.0); BG FRACTION INSPIRED OXYGEN 100; BG HCO3 ACT 10.7 mmol/L (22.0-26.0); BG METHEMOGLOBIN 0.3 % (0.0-1.5); BG OXYGEN SATURATION 93.9 % (92.0-98.5); BG OXYHEMOGLOBIN 93.3 % (94.0-97.0); BG PH 7.286 (7.350-7.450); BG PO2 79.8 mmHg (75.0-100.0); BG SAMPLE SITE RIGHT RADIAL; BG TIDAL VOLUME(mL) 450 mL; BG TOTAL HEMOGLOBIN 10.2 g/dL (12.0-18.0); BG VENT MODE VENT - A/C; BG VENT RATE 12 set
[2018-08-06] VITALS (66 sets, daily range): BP systolic 81–172; BP diastolic 38–111
[2018-08-06] MEDS: DOPAMINE 800MG PREMIX (DOUBLE) 250 ML IV PRN (02:14)
[2018-08-06] MEDS: MEROPENEM 1,000 MG in SODIUM CHLORIDE 0.9% 100 ML IV SCH ×2 (03:24→15:57)
[2018-08-06] MEDS: ALBUMIN HUMAN 25GM/100ML (25%) IV SCH ×2 (04:23→12:44)
[2018-08-06 06:57] LABS: INR 1.8; PROTHROMBIN TIME 17.8 sec (9.6-11.0)
[2018-08-06] MEDS: PROPOFOL 10MG/ML 100ML 100 ML IV PRN ×2 (06:58→12:47)
[2018-08-06] MEDS: INSULIN LISPRO 100 UNITS/ML SUBCUT SCH ×3 (06:59→18:00)
[2018-08-06] MEDS: ASCORBIC ACID 500 MG TABLET PO SCH ×2 (08:08→20:59)
[2018-08-06] MEDS: ZINC SULFATE 220 MG ( 50 ) CAPSULE PO SCH (08:08)
[2018-08-06] MEDS: PANTOPRAZOLE 40MG DR TABLET PO SCH (08:08)
[2018-08-06] MEDS: IPRATROPIUM/ALBUTEROL 0.5-3(2.5)MG/3ML NEB INH PRN ×3 (08:45→16:15)
[2018-08-06] MEDS: SODIUM BICARBONATE 100 MEQ in DEXTROSE 5% WATER 1,000 ML IV SCH (09:30)
[2018-08-06 09:55] LABS: CHLORIDE 114 mEq/L (98-107)
[2018-08-06 09:57] LABS: BASOPHILS % 0.1 % (0.0-2.0); HEMATOCRIT. 23.7 % (36.0-48.0); LYMPHOCYTES % 14.6 % (20.0-50.0); MEAN CORPUSCULAR HEMOGLOBIN 30.8 pg (28.0-32.0); MEAN CORPUSCULAR VOLUME 91.6 fL (81.0-99.0); MEAN PLATELET VOLUME 9.3 fl (7.4-10.4); MONOCYTES % 2.7 % (2.0-8.0); NEUTROPHILS % 82.6 % (40.0-76.0); RED BLOOD CELL COUNT 2.59 mill/uL (4.2-5.4)
[2018-08-06 10:02] LABS: PLATELET 32 x1000/uL (130-400)
[2018-08-06] MEDS ORDERED: POTASSIUM CHLORIDE 20MEQ/PACKET PO NR (10:45)
[2018-08-06 10:56] LABS: BG CARBOXYHEMOGLOBIN 0.3 % (0.5-1.5); BG DEOXYHEMOGLOBIN 0.8 % (0.0-5.0); BG FRACTION INSPIRED OXYGEN 100; BG HCO3 ACT 15.9 mmol/L (22.0-26.0); BG METHEMOGLOBIN 0.1 % (0.0-1.5); BG OXYGEN SATURATION 99.2 % (92.0-98.5); BG OXYHEMOGLOBIN 98.8 % (94.0-97.0); BG PCO2 20.8 mmHg (35.0-45.0); BG PH 7.502 (7.350-7.450); BG PO2 217.9 mmHg (75.0-100.0); BG SAMPLE SITE LEFT BRACHIAL; BG TIDAL VOLUME(mL) 450 mL; BG TOTAL HEMOGLOBIN 8.6 g/dL (12.0-18.0); BG VENT MODE VENT - A/C; BG VENT RATE 12 set
[2018-08-06] MEDS ORDERED: KCL 20MEQ/100ML PREMIX 100 ML IV NR (12:00)
[2018-08-06] MEDS: BLOOD SUGAR DIAGNOSTIC STRIP TEST SCH ×2 (12:31→18:08)
[2018-08-06] MEDS: VANCOMYCIN 750 MG PREMIX 150 ML IV SCH (14:50)
[2018-08-06 15:15] LABS: BG CARBOXYHEMOGLOBIN 0.9 % (0.5-1.5); BG DEOXYHEMOGLOBIN 1.3 % (0.0-5.0); BG FRACTION INSPIRED OXYGEN 85; BG HCO3 ACT 13.4 mmol/L (22.0-26.0); BG METHEMOGLOBIN 0.3 % (0.0-1.5); BG OXYGEN SATURATION 98.7 % (92.0-98.5); BG OXYHEMOGLOBIN 97.5 % (94.0-97.0); BG PCO2 14.6 mmHg (35.0-45.0); BG PH 7.581 (7.350-7.450); BG PO2 136.3 mmHg (75.0-100.0); BG SAMPLE SITE LEFT BRACHIAL; BG TIDAL VOLUME(mL) 450 mL; BG VENT MODE VENT - A/C; BG VENT RATE 8 set
[2018-08-06 15:20] LABS: PLATELET ESTIMATE MARKEDLY DECREASED
[2018-08-06] MEDS: DEXTROSE 50% WATER 50ML SYRINGE IV PRN (18:28)
[2018-08-06] MEDS ORDERED: PROPOFOL 10MG/ML 100ML 100 ML IV PRN (21:06)
[2018-08-07] VITALS (46 sets, daily range): BP systolic 84–122; BP diastolic 48–90
[2018-08-07] MEDS: BLOOD SUGAR DIAGNOSTIC STRIP TEST SCH ×5 (00:16→23:37)
[2018-08-07] MEDS: MEROPENEM 1,000 MG in SODIUM CHLORIDE 0.9% 100 ML IV SCH ×2 (02:06→14:27)
[2018-08-07] MEDS: INSULIN LISPRO 100 UNITS/ML SUBCUT SCH ×5 (05:46→23:37)
[2018-08-07 07:38] LABS: CHLORIDE 113 mEq/L (98-107)
[2018-08-07 07:41] LABS: BG BASE EXCESS -6.8 mmol/L (-2.0-2.0); BG CARBOXYHEMOGLOBIN 0.3 % (0.5-1.5); BG DEOXYHEMOGLOBIN 8.6 % (0.0-5.0); BG HCO3 ACT 15.3 mmol/L (22.0-26.0); BG OXYGEN SATURATION 91.4 % (92.0-98.5); BG OXYHEMOGLOBIN 91.1 % (94.0-97.0); BG PCO2 20.8 mmHg (35.0-45.0); BG PH 7.484 (7.350-7.450); BG PO2 58.5 mmHg (75.0-100.0); BG SAMPLE SITE RIGHT RADIAL; BG TIDAL VOLUME(mL) 400 mL; BG TOTAL HEMOGLOBIN 9.2 g/dL (12.0-18.0); BG VENT MODE VENT - A/C; BG VENT RATE 10 set
[2018-08-07 07:48] LABS: BASOPHILS % 0.3 % (0.0-2.0); EOSINOPHILS % 0.1 % (0.0-5.0); HEMATOCRIT. 25.5 % (36.0-48.0); HEMOGLOBIN. 8.9 g/dL (12.0-16.0); LYMPHOCYTES % 12.3 % (20.0-50.0); MEAN CORPUSCULAR HEMOGLOBIN 31.3 pg (28.0-32.0); MEAN CORPUSCULAR VOLUME 90.2 fL (81.0-99.0); MEAN PLATELET VOLUME 11.3 fl (7.4-10.4); MONOCYTES % 4.1 % (2.0-8.0); NEUTROPHILS % 83.2 % (40.0-76.0); RED BLOOD CELL COUNT 2.82 mill/uL (4.2-5.4); RED CELL DISTRIBUTION WIDTH 20.1 % (11.6-14.6)
[2018-08-07 07:52] LABS: PLATELET 31 x1000/uL (130-400)
[2018-08-07] MEDS: PANTOPRAZOLE 40MG DR TABLET PO SCH (08:02)
[2018-08-07] MEDS: ZINC SULFATE 220 MG ( 50 ) CAPSULE PO SCH (08:02)
[2018-08-07] MEDS: ASCORBIC ACID 500 MG TABLET PO SCH ×2 (08:02→21:14)
[2018-08-07] MEDS: IPRATROPIUM/ALBUTEROL 0.5-3(2.5)MG/3ML NEB INH PRN (08:26)
[2018-08-07] MEDS ORDERED: SODIUM BICARBONATE 100 MEQ in DEXTROSE 5% WATER 1,000 ML IV SCH (10:00)
[2018-08-07] MEDS: DEXT 5%/0.45% NACL 1000ML 1,000 ML IV SCH ×2 (10:44→21:12)
[2018-08-07] MEDS: IPRATROPIUM/ALBUTEROL 0.5-3(2.5)MG/3ML NEB HHN SCH ×2 (13:03→20:09)
[2018-08-07 13:29] LABS: INR 2.1; PROTHROMBIN TIME 21.3 sec (9.6-11.0)
[2018-08-07] MEDS: PROPOFOL 10MG/ML 100ML 100 ML IV PRN (14:53)
[2018-08-07] MEDS: VANCOMYCIN 750 MG PREMIX 150 ML IV SCH (15:19)
[2018-08-07 17:21] LABS: PLATELET 48 x1000/uL (130-400)
[2018-08-07] MEDS: METOCLOPRAMIDE HCL 10MG/2ML VIAL IV SCH ×2 (18:49→23:37)
[2018-08-08] VITALS (77 sets, daily range): BP systolic 63–145; BP diastolic 30–89
[2018-08-08] MEDS: IPRATROPIUM/ALBUTEROL 0.5-3(2.5)MG/3ML NEB HHN SCH ×4 (01:50→20:15)
[2018-08-08] MEDS: MEROPENEM 1,000 MG in SODIUM CHLORIDE 0.9% 100 ML IV SCH ×2 (03:00→15:44)
[2018-08-08] MEDS: BLOOD SUGAR DIAGNOSTIC STRIP TEST SCH ×4 (05:29→23:19)
[2018-08-08] MEDS: INSULIN LISPRO 100 UNITS/ML SUBCUT SCH ×4 (05:29→23:19)
[2018-08-08] MEDS: METOCLOPRAMIDE HCL 10MG/2ML VIAL IV SCH ×4 (05:29→23:19)
[2018-08-08 06:03] LABS: BASOPHILS % 0.4 % (0.0-2.0); EOSINOPHILS % 0.7 % (0.0-5.0); HEMOGLOBIN. 9.5 g/dL (12.0-16.0); LYMPHOCYTES % 15.5 % (20.0-50.0); MEAN CORPUSCULAR HEMOGLOBIN 30.7 pg (28.0-32.0); MEAN CORPUSCULAR VOLUME 90.2 fL (81.0-99.0); MONOCYTES % 4.4 % (2.0-8.0)
[2018-08-08 06:54] LABS: MEAN PLATELET VOLUME 11.9 fl (7.4-10.4); PLATELET 27 x1000/uL (130-400)
[2018-08-08 07:16] LABS: BG CARBOXYHEMOGLOBIN 0.7 % (0.5-1.5); BG DEOXYHEMOGLOBIN 2.8 % (0.0-5.0); BG HCO3 ACT 19.9 mmol/L (22.0-26.0); BG METHEMOGLOBIN 0.2 % (0.0-1.5); BG OXYGEN SATURATION 97.2 % (92.0-98.5); BG OXYHEMOGLOBIN 96.3 % (94.0-97.0); BG PCO2 28.4 mmHg (35.0-45.0); BG PH 7.463 (7.350-7.450); BG PO2 102.5 mmHg (75.0-100.0); BG SAMPLE SITE RIGHT RADIAL; BG TIDAL VOLUME(mL) 400 mL; BG TOTAL HEMOGLOBIN 10.2 g/dL (12.0-18.0); BG VENT MODE VENT - A/C; BG VENT RATE 10 set
[2018-08-08] MEDS: PANTOPRAZOLE 40MG DR TABLET PO SCH (09:38)
[2018-08-08] MEDS: PROPOFOL 10MG/ML 100ML 100 ML IV PRN (09:38)
[2018-08-08] MEDS: ZINC SULFATE 220 MG ( 50 ) CAPSULE PO SCH (09:38)
[2018-08-08] MEDS: ASCORBIC ACID 500 MG TABLET PO SCH ×2 (09:38→20:09)
[2018-08-08] MEDS: DEXT 5%/0.45% NACL 1000ML 1,000 ML IV SCH ×3 (09:39→22:32)
[2018-08-08] MEDS ORDERED: PROPOFOL 10MG/ML 100ML 100 ML IV PRN (10:15)
[2018-08-08] MEDS ORDERED: VANCOMYCIN 750 MG PREMIX 150 ML IV SCH (13:30)
[2018-08-08] MEDS: DEXTROSE 50% WATER 50ML SYRINGE IV PRN (23:13)
[2018-08-09] VITALS (98 sets, daily range): BP systolic 60–147; BP diastolic 19–98
[2018-08-09] MEDS: MEROPENEM 500MG in NORMAL SALINE 50ML IV SCH ×2 (02:21→14:48)
[2018-08-09] MEDS: METOCLOPRAMIDE HCL 10MG/2ML VIAL IV SCH ×4 (05:08→23:50)
[2018-08-09] MEDS: INSULIN LISPRO 100 UNITS/ML SUBCUT SCH ×4 (05:13→23:51)
[2018-08-09] MEDS: BLOOD SUGAR DIAGNOSTIC STRIP TEST SCH ×4 (05:13→23:50)
[2018-08-09 05:58] LABS: BASOPHILS % 0.4 % (0.0-2.0); EOSINOPHILS % 1.2 % (0.0-5.0); HEMATOCRIT. 32.4 % (36.0-48.0); LYMPHOCYTES % 18.7 % (20.0-50.0); MEAN CORPUSCULAR HEMOGLOBIN 30.8 pg (28.0-32.0); MEAN CORPUSCULAR VOLUME 91.1 fL (81.0-99.0); MEAN PLATELET VOLUME 10.5 fl (7.4-10.4); MONOCYTES % 5.1 % (2.0-8.0); NEUTROPHILS % 74.6 % (40.0-76.0); RED BLOOD CELL COUNT 3.56 mill/uL (4.2-5.4); RED CELL DISTRIBUTION WIDTH 20.2 % (11.6-14.6)
[2018-08-09 06:30] LABS: PLATELET 18 x1000/uL (130-400)
[2018-08-09] MEDS: ZINC SULFATE 220 MG ( 50 ) CAPSULE PO SCH (08:05)
[2018-08-09] MEDS: ASCORBIC ACID 500 MG TABLET PO SCH ×2 (08:05→20:40)
[2018-08-09] MEDS: PANTOPRAZOLE 40MG DR TABLET PO SCH (08:05)
[2018-08-09] MEDS: IPRATROPIUM/ALBUTEROL 0.5-3(2.5)MG/3ML NEB HHN SCH ×3 (08:26→21:01)
[2018-08-09 08:41] LABS: BG BASE EXCESS -5.7 mmol/L (-2.0-2.0); BG CARBOXYHEMOGLOBIN 0.3 % (0.5-1.5); BG DEOXYHEMOGLOBIN 3.8 % (0.0-5.0); BG FRACTION INSPIRED OXYGEN 50; BG HCO3 ACT 17.4 mmol/L (22.0-26.0); BG METHEMOGLOBIN 0.5 % (0.0-1.5); BG OXYGEN SATURATION 96.2 % (92.0-98.5); BG OXYHEMOGLOBIN 95.4 % (94.0-97.0); BG PCO2 26.9 mmHg (35.0-45.0); BG PH 7.428 (7.350-7.450); BG PO2 82.4 mmHg (75.0-100.0); BG SAMPLE SITE RIGHT RADIAL; BG TIDAL VOLUME(mL) 400 mL; BG TOTAL HEMOGLOBIN 11.1 g/dL (12.0-18.0); BG VENT MODE VENT - A/C; BG VENT RATE 10 set
[2018-08-09] MEDS ORDERED: MORPHINE SULFATE 4 MG/ML CPJ (NOT FOR IM USE) IV PRN (11:00)
[2018-08-09] MEDS ORDERED: LORAZEPAM 2MG/ML CPJ IV PRN (11:00)
[2018-08-09] MEDS: DEXT 5%/0.45% NACL 1000ML 1,000 ML IV SCH ×2 (12:35→23:08)
[2018-08-09] MEDS: PHENYLEPHRINE 10 MG in DEXT 5% WATER 249 ML IV PRN ×2 (12:36→14:49)
[2018-08-09] MEDS ORDERED: PHENYLEPHRINE 40 MG in DEXT 5% WATER 249 ML IV PRN (17:30)
[2018-08-09] MEDS: PHENYLEPHRINE 40 MG in DEXTROSE 5% WATER 250 ML IV PRN (17:41)
[2018-08-09] MEDS ORDERED: PROPOFOL 10MG/ML 100ML 100 ML IV PRN (19:30)
[2018-08-10] VITALS (93 sets, daily range): BP systolic 81–144; BP diastolic 40–113
[2018-08-10] MEDS: IPRATROPIUM/ALBUTEROL 0.5-3(2.5)MG/3ML NEB HHN SCH ×4 (01:55→20:40)
[2018-08-10] MEDS: MEROPENEM 500MG in NORMAL SALINE 50ML IV SCH ×2 (03:26→16:06)
[2018-08-10] MEDS: PHENYLEPHRINE 40 MG in DEXTROSE 5% WATER 250 ML IV PRN (04:52)
[2018-08-10] MEDS: BLOOD SUGAR DIAGNOSTIC STRIP TEST SCH ×4 (05:26→23:49)
[2018-08-10] MEDS: METOCLOPRAMIDE HCL 10MG/2ML VIAL IV SCH ×4 (05:26→23:48)
[2018-08-10] MEDS: INSULIN LISPRO 100 UNITS/ML SUBCUT SCH ×4 (05:27→23:49)
[2018-08-10 05:50] LABS: BASOPHILS % 0.4 % (0.0-2.0); EOSINOPHILS % 1.8 % (0.0-5.0); HEMATOCRIT. 27.4 % (36.0-48.0); HEMOGLOBIN. 9.4 g/dL (12.0-16.0); LYMPHOCYTES % 17.9 % (20.0-50.0); MEAN CORPUSCULAR HEMOGLOBIN 30.9 pg (28.0-32.0); MEAN CORPUSCULAR VOLUME 90.2 fL (81.0-99.0); MEAN PLATELET VOLUME 10.2 fl (7.4-10.4); MONOCYTES % 5.8 % (2.0-8.0); NEUTROPHILS % 74.1 % (40.0-76.0); RED BLOOD CELL COUNT 3.03 mill/uL (4.2-5.4); RED CELL DISTRIBUTION WIDTH 19.6 % (11.6-14.6)
[2018-08-10 06:50] LABS: PLATELET 14 x1000/uL (130-400)
[2018-08-10 07:57] LABS: BG BASE EXCESS -6.9 mmol/L (-2.0-2.0); BG CARBOXYHEMOGLOBIN 0.3 % (0.5-1.5); BG DEOXYHEMOGLOBIN 2.4 % (0.0-5.0); BG HCO3 ACT 16.4 mmol/L (22.0-26.0); BG METHEMOGLOBIN 0.3 % (0.0-1.5); BG OXYGEN SATURATION 97.6 % (92.0-98.5); BG PCO2 26.3 mmHg (35.0-45.0); BG PH 7.414 (7.350-7.450); BG PO2 103.2 mmHg (75.0-100.0); BG SAMPLE SITE RIGHT RADIAL; BG TIDAL VOLUME(mL) 400 mL; BG TOTAL HEMOGLOBIN 9.9 g/dL (12.0-18.0); BG VENT MODE VENT - A/C; BG VENT RATE 10 set
[2018-08-10] MEDS: PANTOPRAZOLE 40MG DR TABLET PO SCH (08:52)
[2018-08-10] MEDS: ASCORBIC ACID 500 MG TABLET PO SCH ×2 (08:52→20:51)
[2018-08-10] MEDS: ZINC SULFATE 220 MG ( 50 ) CAPSULE PO SCH (08:52)
[2018-08-10] MEDS: DEXT 5%/0.45% NACL 1000ML 1,000 ML IV SCH (08:52)
[2018-08-10] MEDS ORDERED: NOREPINEPHRINE 4 MG in DEXT 5% WATER 246 ML IV PRN (10:30)
[2018-08-10] MEDS ORDERED: ALBUMIN HUMAN 25GM/100ML (25%) IV NR (14:15)
[2018-08-10] MEDS: DEXT 5%/0.9% NACL 1,000 ML IV SCH (16:06)
[2018-08-11] VITALS (91 sets, daily range): BP systolic 70–140; BP diastolic 37–75
[2018-08-11] MEDS: DEXT 5%/0.9% NACL 1,000 ML IV SCH ×2 (00:14→07:33)
[2018-08-11] MEDS: PHENYLEPHRINE 40 MG in DEXTROSE 5% WATER 250 ML IV PRN (02:17)
[2018-08-11] MEDS: MEROPENEM 500MG in NORMAL SALINE 50ML IV SCH ×2 (02:21→15:26)
[2018-08-11 05:45] LABS: CHLORIDE 108 mEq/L (98-107)
[2018-08-11 05:47] LABS: BASOPHILS % 0.3 % (0.0-2.0); EOSINOPHILS % 1.2 % (0.0-5.0); HEMOGLOBIN. 9.5 g/dL (12.0-16.0); LYMPHOCYTES % 14.5 % (20.0-50.0); MEAN CORPUSCULAR HEMOGLOBIN 30.9 pg (28.0-32.0); MEAN CORPUSCULAR VOLUME 91.8 fL (81.0-99.0); MEAN PLATELET VOLUME 10.6 fl (7.4-10.4); MONOCYTES % 4.9 % (2.0-8.0); NEUTROPHILS % 79.1 % (40.0-76.0); RED BLOOD CELL COUNT 3.06 mill/uL (4.2-5.4); RED CELL DISTRIBUTION WIDTH 19.5 % (11.6-14.6)
[2018-08-11 05:52] LABS: PHOSPHORUS 2.4 mg/dL (2.5-4.9)
[2018-08-11] MEDS: METOCLOPRAMIDE HCL 10MG/2ML VIAL IV SCH ×3 (05:53→18:35)
[2018-08-11] MEDS: BLOOD SUGAR DIAGNOSTIC STRIP TEST SCH ×3 (05:53→18:35)
[2018-08-11] MEDS: INSULIN LISPRO 100 UNITS/ML SUBCUT SCH ×3 (05:53→18:00)
[2018-08-11 05:55] LABS: CREATINE KINASE 82 IU/L (26-192)
[2018-08-11 06:42] LABS: PLATELET 11 x1000/uL (130-400)
[2018-08-11] MEDS: IPRATROPIUM/ALBUTEROL 0.5-3(2.5)MG/3ML NEB HHN SCH ×2 (08:15→20:08)
[2018-08-11] MEDS ORDERED: ALBUMIN HUMAN 25GM/100ML (25%) IV SCH (08:40)
[2018-08-11 08:46] LABS: BG BASE EXCESS -7.2 mmol/L (-2.0-2.0); BG CARBOXYHEMOGLOBIN 0.1 % (0.5-1.5); BG DEOXYHEMOGLOBIN 1.8 % (0.0-5.0); BG FRACTION INSPIRED OXYGEN 40; BG HCO3 ACT 16.2 mmol/L (22.0-26.0); BG METHEMOGLOBIN 0.3 % (0.0-1.5); BG OXYGEN SATURATION 98.2 % (92.0-98.5); BG OXYHEMOGLOBIN 97.8 % (94.0-97.0); BG PCO2 25.6 mmHg (35.0-45.0); BG PH 7.419 (7.350-7.450); BG PO2 116.6 mmHg (75.0-100.0); BG SAMPLE SITE RIGHT BRACHIAL; BG TIDAL VOLUME(mL) 400 mL; BG VENT MODE VENT - A/C; BG VENT RATE 10 set
[2018-08-11] MEDS: PANTOPRAZOLE 40MG DR TABLET PO SCH (09:45)
[2018-08-11] MEDS: ZINC SULFATE 220 MG ( 50 ) CAPSULE PO SCH (09:46)
[2018-08-11] MEDS: ASCORBIC ACID 500 MG TABLET PO SCH ×2 (09:46→21:00)
[2018-08-11] MEDS ORDERED: SODIUM PHOS,M-BASIC-D-BASIC 20 MM in DEXT 5% WATER 250 ML IV SCH (10:00)
[2018-08-11] MEDS ORDERED: MAGNESIUM 4 G PREMIX 100 ML IV SCH (10:00)
[2018-08-11] MEDS: IPRATROPIUM/ALBUTEROL 0.5-3(2.5)MG/3ML NEB HHN PRN ×2 (12:34→16:15)
[2018-08-11 13:33] LABS: BG BASE EXCESS -7.5 mmol/L (-2.0-2.0); BG CARBOXYHEMOGLOBIN 0.6 % (0.5-1.5); BG FRACTION INSPIRED OXYGEN 40; BG HCO3 ACT 16.4 mmol/L (22.0-26.0); BG METHEMOGLOBIN 0.4 % (0.0-1.5); BG PCO2 27.3 mmHg (35.0-45.0); BG PH 7.397 (7.350-7.450); BG PO2 119.7 mmHg (75.0-100.0); BG SAMPLE SITE RIGHT RADIAL; BG TIDAL VOLUME(mL) 400 mL; BG TOTAL HEMOGLOBIN 8.1 g/dL (12.0-18.0); BG VENT MODE VENT - A/C; BG VENT RATE 10 set
[2018-08-11 15:48] LABS: FOLIC ACID (FOLATE) SERUM 3.5 ng/mL (>5.38)
[2018-08-12] VITALS (99 sets, daily range): BP systolic 66–143; BP diastolic 27–103
[2018-08-12] MEDS: METOCLOPRAMIDE HCL 10MG/2ML VIAL IV SCH ×5 (00:27→23:14)
[2018-08-12] MEDS: DEXT 5%/0.9% NACL 1,000 ML IV SCH ×2 (00:30→22:09)
[2018-08-12] MEDS: BLOOD SUGAR DIAGNOSTIC STRIP TEST SCH ×5 (00:49→23:31)
[2018-08-12] MEDS: IPRATROPIUM/ALBUTEROL 0.5-3(2.5)MG/3ML NEB HHN SCH ×4 (02:05→20:12)
[2018-08-12] MEDS: MEROPENEM 500MG in NORMAL SALINE 50ML IV SCH ×3 (03:31→22:08)
[2018-08-12 04:59] LABS: BASOPHILS % 0.3 % (0.0-2.0); EOSINOPHILS % 0.6 % (0.0-5.0); HEMATOCRIT. 21.3 % (36.0-48.0); HEMOGLOBIN. 7.2 g/dL (12.0-16.0); LYMPHOCYTES % 15.3 % (20.0-50.0); MEAN CORPUSCULAR HEMOGLOBIN 30.6 pg (28.0-32.0); MEAN CORPUSCULAR VOLUME 91.1 fL (81.0-99.0); MEAN PLATELET VOLUME 11.1 fl (7.4-10.4); MONOCYTES % 5.2 % (2.0-8.0); NEUTROPHILS % 78.6 % (40.0-76.0); RED BLOOD CELL COUNT 2.34 mill/uL (4.2-5.4); RED CELL DISTRIBUTION WIDTH 19.4 % (11.6-14.6)
[2018-08-12 05:08] LABS: PLATELET 9 x1000/uL (130-400)
[2018-08-12 05:12] LABS: PHOSPHORUS 3.7 mg/dL (2.5-4.9)
[2018-08-12] MEDS: INSULIN LISPRO 100 UNITS/ML SUBCUT SCH ×5 (06:00→23:31)
[2018-08-12 06:19] LABS: HEMOGLOBIN 8.8 g/dL (12.0-16.0); MEAN CORPUSCULAR HEMOGLOBIN 30.8 pg (28.0-32.0); MEAN CORPUSCULAR VOLUME 91.4 fL (81.0-99.0); RED BLOOD CELL COUNT 2.84 mill/uL (4.2-5.4); RED CELL DISTRIBUTION WIDTH 19.3 % (11.6-14.6)
[2018-08-12 06:31] LABS: PLATELET 11 x1000/uL (130-400)
[2018-08-12] MEDS: DEXTROSE 50% WATER 50ML SYRINGE IV PRN (06:59)
[2018-08-12 08:37] LABS: BG BASE EXCESS -9.3 mmol/L (-2.0-2.0); BG DEOXYHEMOGLOBIN 1.6 % (0.0-5.0); BG HCO3 ACT 14.8 mmol/L (22.0-26.0); BG METHEMOGLOBIN 0.7 % (0.0-1.5); BG OXYGEN SATURATION 98.4 % (92.0-98.5); BG OXYHEMOGLOBIN 96.7 % (94.0-97.0); BG PH 7.373 (7.350-7.450); BG PO2 138.7 mmHg (75.0-100.0); BG SAMPLE SITE RIGHT RADIAL; BG TIDAL VOLUME(mL) 400 mL; BG TOTAL HEMOGLOBIN 8.1 g/dL (12.0-18.0); BG VENT MODE VENT - A/C; BG VENT RATE 10 set
[2018-08-12] MEDS: ZINC SULFATE 220 MG ( 50 ) CAPSULE PO SCH (08:51)
[2018-08-12] MEDS: ASCORBIC ACID 500 MG TABLET PO SCH ×2 (08:51→20:45)
[2018-08-12] MEDS: PANTOPRAZOLE 40MG DR TABLET PO SCH (08:54)
[2018-08-12] MEDS ORDERED: POTASSIUM CHLORIDE INJ 40 MEQ in DEXT 5% WATER 250 ML IV SCH (09:00)
[2018-08-12] MEDS: PHENYLEPHRINE 40 MG in DEXTROSE 5% WATER 250 ML IV PRN (15:35)
[2018-08-12] MEDS ORDERED: MEROPENEM 1,000 MG in SODIUM CHLORIDE 0.9% 100 ML IV SCH (21:00)
[2018-08-13] VITALS (75 sets, daily range): BP systolic 82–146; BP diastolic 39–80
[2018-08-13] MEDS: METOCLOPRAMIDE HCL 10MG/2ML VIAL IV SCH ×4 (05:19→23:33)
[2018-08-13 05:39] LABS: BASOPHILS % 0.5 % (0.0-2.0); EOSINOPHILS % 1.6 % (0.0-5.0); HEMATOCRIT. 27.5 % (36.0-48.0); HEMOGLOBIN. 9.2 g/dL (12.0-16.0); LYMPHOCYTES % 14.7 % (20.0-50.0); MEAN CORPUSCULAR VOLUME 92.5 fL (81.0-99.0); MEAN PLATELET VOLUME 10.6 fl (7.4-10.4); MONOCYTES % 5.8 % (2.0-8.0); NEUTROPHILS % 77.4 % (40.0-76.0); RED BLOOD CELL COUNT 2.97 mill/uL (4.2-5.4); RED CELL DISTRIBUTION WIDTH 19.4 % (11.6-14.6)
[2018-08-13 05:55] LABS: PHOSPHORUS 3.8 mg/dL (2.5-4.9)
[2018-08-13] MEDS: INSULIN LISPRO 100 UNITS/ML SUBCUT SCH ×4 (05:56→23:33)
[2018-08-13] MEDS: BLOOD SUGAR DIAGNOSTIC STRIP TEST SCH ×4 (05:56→23:33)
[2018-08-13 06:27] LABS: PLATELET 12 x1000/uL (130-400)
[2018-08-13] MEDS: PANTOPRAZOLE 40MG DR TABLET PO SCH (08:09)
[2018-08-13 08:24] LABS: BG BASE EXCESS -9.3 mmol/L (-2.0-2.0); BG DEOXYHEMOGLOBIN 1.7 % (0.0-5.0); BG HCO3 ACT 14.4 mmol/L (22.0-26.0); BG METHEMOGLOBIN 0.3 % (0.0-1.5); BG OXYGEN SATURATION 98.3 % (92.0-98.5); BG PCO2 23.8 mmHg (35.0-45.0); BG PH 7.399 (7.350-7.450); BG PO2 136.4 mmHg (75.0-100.0); BG SAMPLE SITE RIGHT RADIAL; BG TIDAL VOLUME(mL) 400 mL; BG VENT MODE VENT - A/C; BG VENT RATE 10 set
[2018-08-13 08:25] LABS: INR 1.7; PROTHROMBIN TIME 16.9 sec (9.6-11.0)
[2018-08-13] MEDS: IPRATROPIUM/ALBUTEROL 0.5-3(2.5)MG/3ML NEB HHN SCH ×3 (08:32→20:08)
[2018-08-13] MEDS: ZINC SULFATE 220 MG ( 50 ) CAPSULE PO SCH (09:10)
[2018-08-13] MEDS: ASCORBIC ACID 500 MG TABLET PO SCH ×2 (09:10→20:40)
[2018-08-13] MEDS: MEROPENEM 500MG in NORMAL SALINE 50ML IV SCH ×2 (09:12→20:40)
[2018-08-13] MEDS: DEXT 5%/0.9% NACL 1,000 ML IV SCH (15:59)
[2018-08-13] MEDS: NYSTATIN POWDER 15GM TOP SCH (21:30)
[2018-08-13] MEDS: DEXTROSE 50% WATER 50ML SYRINGE IV PRN (23:33)
[2018-08-14] VITALS (117 sets, daily range): BP systolic 93–177; BP diastolic 45–89
[2018-08-14] MEDS: IPRATROPIUM/ALBUTEROL 0.5-3(2.5)MG/3ML NEB HHN SCH ×4 (02:15→20:54)
[2018-08-14] MEDS: BLOOD SUGAR DIAGNOSTIC STRIP TEST SCH ×4 (05:38→23:45)
[2018-08-14] MEDS: METOCLOPRAMIDE HCL 10MG/2ML VIAL IV SCH ×4 (05:38→23:21)
[2018-08-14] MEDS: INSULIN LISPRO 100 UNITS/ML SUBCUT SCH ×4 (05:38→23:46)
[2018-08-14] MEDS: DEXTROSE 50% WATER 50ML SYRINGE IV PRN ×4 (06:04→17:24)
[2018-08-14] MEDS: PANTOPRAZOLE 40MG DR TABLET PO SCH (07:50)
[2018-08-14] MEDS: ZINC SULFATE 220 MG ( 50 ) CAPSULE PO SCH (08:08)
[2018-08-14] MEDS: ASCORBIC ACID 500 MG TABLET PO SCH ×2 (08:08→21:00)
[2018-08-14] MEDS: NYSTATIN POWDER 15GM TOP SCH ×4 (08:17→21:10)
[2018-08-14] MEDS: MEROPENEM 500MG in NORMAL SALINE 50ML IV SCH ×2 (08:17→21:09)
[2018-08-14 09:29] LABS: BASOPHILS % 0.2 % (0.0-2.0); EOSINOPHILS % 0.9 % (0.0-5.0); LYMPHOCYTES % 21.7 % (20.0-50.0); MEAN CORPUSCULAR HEMOGLOBIN 31.1 pg (28.0-32.0); MEAN CORPUSCULAR VOLUME 91.3 fL (81.0-99.0); MEAN PLATELET VOLUME 8.6 fl (7.4-10.4); MONOCYTES % 4.5 % (2.0-8.0); NEUTROPHILS % 72.7 % (40.0-76.0); PLATELET 51 x1000/uL (130-400); RED BLOOD CELL COUNT 1.88 mill/uL (4.2-5.4); RED CELL DISTRIBUTION WIDTH 18.9 % (11.6-14.6)
[2018-08-14 09:30] LABS: BG BASE EXCESS -8.8 mmol/L (-2.0-2.0); BG CARBOXYHEMOGLOBIN 1.6 % (0.5-1.5); BG DEOXYHEMOGLOBIN 1.6 % (0.0-5.0); BG FRACTION INSPIRED OXYGEN 40; BG HCO3 ACT 15.2 mmol/L (22.0-26.0); BG METHEMOGLOBIN 0.5 % (0.0-1.5); BG OXYGEN SATURATION 98.4 % (92.0-98.5); BG OXYHEMOGLOBIN 96.3 % (94.0-97.0); BG PCO2 24.7 mmHg (35.0-45.0); BG PH 7.406 (7.350-7.450); BG PO2 135.5 mmHg (75.0-100.0); BG SAMPLE SITE RIGHT BRACHIAL; BG TIDAL VOLUME(mL) 400 mL; BG TOTAL HEMOGLOBIN 5.7 g/dL (12.0-18.0); BG VENT MODE VENT - A/C; BG VENT RATE 10 set
[2018-08-14 09:36] LABS: HEMATOCRIT. 17.1 % (36.0-48.0); HEMOGLOBIN. 5.8 g/dL (12.0-16.0)
[2018-08-14 09:40] LABS: PHOSPHORUS 3.7 mg/dL (2.5-4.9)
[2018-08-14 09:53] LABS: INR 1.4; PROTHROMBIN TIME 14.3 sec (9.6-11.0)
[2018-08-14] MEDS ORDERED: FUROSEMIDE 100MG/10ML VIAL IVP NR (11:00)
[2018-08-14] MEDS: DEXT 5%/0.9% NACL 1,000 ML IV SCH ×2 (15:06→23:53)
[2018-08-14] MEDS ORDERED: ROCURONIUM BROMIDE 10MG/ML VIAL 5ML IV ONE (19:42)
[2018-08-14] MEDS ORDERED: MIDAZOLAM HCL 5 MG/5 ML VIAL ONE (19:42)
[2018-08-14 21:29] LABS: BASOPHILS % 0.2 % (0.0-2.0); EOSINOPHILS % 1.2 % (0.0-5.0); HEMATOCRIT. 33.1 % (36.0-48.0); HEMOGLOBIN. 11.1 g/dL (12.0-16.0); LYMPHOCYTES % 15.4 % (20.0-50.0); MEAN CORPUSCULAR HEMOGLOBIN 30.6 pg (28.0-32.0); MEAN PLATELET VOLUME 8.3 fl (7.4-10.4); MONOCYTES % 4.5 % (2.0-8.0); NEUTROPHILS % 78.7 % (40.0-76.0); PLATELET 88 x1000/uL (130-400); RED BLOOD CELL COUNT 3.64 mill/uL (4.2-5.4); RED CELL DISTRIBUTION WIDTH 16.9 % (11.6-14.6)
[2018-08-15] VITALS (83 sets, daily range): BP systolic 107–186; BP diastolic 49–100
[2018-08-15] MEDS: IPRATROPIUM/ALBUTEROL 0.5-3(2.5)MG/3ML NEB HHN SCH ×4 (01:41→20:16)
[2018-08-15] MEDS: INSULIN LISPRO 100 UNITS/ML SUBCUT SCH ×3 (05:30→18:00)
[2018-08-15] MEDS: BLOOD SUGAR DIAGNOSTIC STRIP TEST SCH ×3 (05:30→17:02)
[2018-08-15] MEDS: METOCLOPRAMIDE HCL 10MG/2ML VIAL IV SCH ×3 (05:55→17:01)
[2018-08-15 05:57] LABS: BASOPHILS % 0.2 % (0.0-2.0); EOSINOPHILS % 0.5 % (0.0-5.0); HEMATOCRIT. 37.3 % (36.0-48.0); HEMOGLOBIN. 12.5 g/dL (12.0-16.0); LYMPHOCYTES % 14.1 % (20.0-50.0); MEAN CORPUSCULAR HEMOGLOBIN 30.5 pg (28.0-32.0); MEAN CORPUSCULAR VOLUME 90.7 fL (81.0-99.0); MEAN PLATELET VOLUME 8.7 fl (7.4-10.4); MONOCYTES % 3.6 % (2.0-8.0); NEUTROPHILS % 81.6 % (40.0-76.0); PLATELET 68 x1000/uL (130-400); RED BLOOD CELL COUNT 4.11 mill/uL (4.2-5.4); RED CELL DISTRIBUTION WIDTH 17.5 % (11.6-14.6)
[2018-08-15 07:59] LABS: PHOSPHORUS 3.2 mg/dL (2.5-4.9)
[2018-08-15 08:18] LABS: BG BASE EXCESS -11.6 mmol/L (-2.0-2.0); BG CARBOXYHEMOGLOBIN 0.8 % (0.5-1.5); BG DEOXYHEMOGLOBIN 1.7 % (0.0-5.0); BG FRACTION INSPIRED OXYGEN 40; BG METHEMOGLOBIN 0.3 % (0.0-1.5); BG OXYGEN SATURATION 98.3 % (92.0-98.5); BG OXYHEMOGLOBIN 97.2 % (94.0-97.0); BG PCO2 31.4 mmHg (35.0-45.0); BG PH 7.268 (7.350-7.450); BG PO2 129.2 mmHg (75.0-100.0); BG SAMPLE SITE RIGHT BRACHIAL; BG TIDAL VOLUME(mL) 400 mL; BG TOTAL HEMOGLOBIN 13.8 g/dL (12.0-18.0); BG VENT MODE VENT - A/C; BG VENT RATE 10 set
[2018-08-15] MEDS ORDERED: SODIUM BICARBONATE 8.4% 1 MEQ/ML 50ML SYR IV NR (08:45)
[2018-08-15] MEDS: CITRIC ACID/SODIUM CITRATE SOLN 30ML UDC PO SCH ×3 (09:11→17:01)
[2018-08-15] MEDS: PANTOPRAZOLE 40MG DR TABLET PO SCH (09:12)
[2018-08-15] MEDS: ASCORBIC ACID 500 MG TABLET PO SCH ×2 (09:12→20:44)
[2018-08-15] MEDS: MEROPENEM 500MG in NORMAL SALINE 50ML IV SCH ×2 (09:12→20:40)
[2018-08-15] MEDS: ZINC SULFATE 220 MG ( 50 ) CAPSULE PO SCH (09:12)
[2018-08-15] MEDS: NYSTATIN POWDER 15GM TOP SCH ×5 (09:12→20:41)
[2018-08-15] MEDS ORDERED: MAGNESIUM 2 G PREMIX 50 ML IV SCH (10:00)
[2018-08-15] MEDS ORDERED: POTASSIUM CHLORIDE INJ 40 MEQ in DEXT 5% WATER 250 ML IV SCH (10:00)
[2018-08-15] MEDS ORDERED: KCL 20MEQ/100ML PREMIX 100 ML IV SCH (12:00)
[2018-08-15] MEDS: DEXTROSE 50% WATER 50ML SYRINGE IV PRN (18:43)
[2018-08-16] VITALS (87 sets, daily range): BP systolic 98–182; BP diastolic 52–103
[2018-08-16] MEDS: DEXT 5%/0.9% NACL 1,000 ML IV SCH (00:27)
[2018-08-16] MEDS: IPRATROPIUM/ALBUTEROL 0.5-3(2.5)MG/3ML NEB HHN SCH ×4 (01:15→19:54)
[2018-08-16] MEDS: INSULIN LISPRO 100 UNITS/ML SUBCUT SCH ×4 (06:00→18:00)
[2018-08-16] MEDS: METOCLOPRAMIDE HCL 10MG/2ML VIAL IV SCH ×4 (06:49→17:48)
[2018-08-16] MEDS: BLOOD SUGAR DIAGNOSTIC STRIP TEST SCH ×4 (06:51→17:48)
[2018-08-16] MEDS ORDERED: DEXTROSE 10% WATER 500 ML IV SCH (07:00)
[2018-08-16] MEDS: PANTOPRAZOLE 40MG DR TABLET PO SCH (07:50)
[2018-08-16] MEDS: ZINC SULFATE 220 MG ( 50 ) CAPSULE PO SCH (09:00)
[2018-08-16] MEDS: ASCORBIC ACID 500 MG TABLET PO SCH ×2 (09:00→21:31)
[2018-08-16] MEDS: CITRIC ACID/SODIUM CITRATE SOLN 30ML UDC PO SCH ×3 (09:00→17:00)
[2018-08-16] MEDS: MEROPENEM 500MG in NORMAL SALINE 50ML IV SCH ×2 (09:17→21:31)
[2018-08-16] MEDS: NYSTATIN POWDER 15GM TOP SCH ×5 (09:18→21:34)
[2018-08-16 09:32] LABS: BG BASE EXCESS -8.7 mmol/L (-2.0-2.0); BG CARBOXYHEMOGLOBIN 0.1 % (0.5-1.5); BG DEOXYHEMOGLOBIN 1.2 % (0.0-5.0); BG FRACTION INSPIRED OXYGEN 35; BG HCO3 ACT 13.8 mmol/L (22.0-26.0); BG METHEMOGLOBIN 0.3 % (0.0-1.5); BG OXYGEN SATURATION 98.8 % (92.0-98.5); BG OXYHEMOGLOBIN 98.4 % (94.0-97.0); BG PCO2 22.2 mmHg (35.0-45.0); BG PH 7.412 (7.350-7.450); BG PO2 177.9 mmHg (75.0-100.0); BG SAMPLE SITE RIGHT RADIAL; BG TIDAL VOLUME(mL) 400 mL; BG TOTAL HEMOGLOBIN 13.3 g/dL (12.0-18.0); BG VENT MODE VENT - A/C; BG VENT RATE 14 set
[2018-08-16] MEDS ORDERED: BACTERIOSTATIC SODIUM CHLORIDE 0.9% 30ML VIAL IJ ONE (13:06)
[2018-08-16] MEDS ORDERED: SIMETHICONE 40 MG/0.6 ML 30ML ONE (13:06)
[2018-08-16 15:00] LABS: BASOPHILS % 0.4 % (0.0-2.0); HEMATOCRIT. 35.6 % (36.0-48.0); HEMOGLOBIN. 12.2 g/dL (12.0-16.0); LYMPHOCYTES % 14.4 % (20.0-50.0); MEAN CORPUSCULAR VOLUME 87.8 fL (81.0-99.0); MEAN PLATELET VOLUME 7.5 fl (7.4-10.4); MONOCYTES % 2.3 % (2.0-8.0); NEUTROPHILS % 82.9 % (40.0-76.0); PLATELET 99 x1000/uL (130-400); RED BLOOD CELL COUNT 4.05 mill/uL (4.2-5.4); RED CELL DISTRIBUTION WIDTH 17.1 % (11.6-14.6)
[2018-08-16 15:09] LABS: INR 1.3; PARTIAL THROMBOPLASTIN TIME 36.1 sec (23.4-31.0); PROTHROMBIN TIME 13.4 sec (9.6-11.0)
[2018-08-16] MEDS ORDERED: FENTANYL CITRATE/PF 50MCG/ML 2ML VIAL ONE (17:09)
[2018-08-16] MEDS ORDERED: MIDAZOLAM HCL 5 MG/5 ML VIAL ONE (17:10)
[2018-08-16] MEDS ORDERED: FENTANYL CITRATE/PF 50MCG/ML 2ML VIAL IV PRN (17:38)
[2018-08-16] MEDS ORDERED: MIDAZOLAM HCL 5 MG/5 ML VIAL IV PRN (17:39)
[2018-08-16] MEDS: DEXT 10% WATER 1,000 ML IV SCH (17:44)
[2018-08-16] MEDS: DEXTROSE 50% WATER 50ML SYRINGE IV PRN (21:48)
[2018-08-17] VITALS (46 sets, daily range): BP systolic 113–176; BP diastolic 51–100
[2018-08-17] MEDS: BLOOD SUGAR DIAGNOSTIC STRIP TEST SCH ×4 (00:22→17:44)
[2018-08-17] MEDS: METOCLOPRAMIDE HCL 10MG/2ML VIAL IV SCH ×4 (00:26→17:40)
[2018-08-17] MEDS: DEXTROSE 50% WATER 50ML SYRINGE IV PRN (01:06)
[2018-08-17] MEDS: IPRATROPIUM/ALBUTEROL 0.5-3(2.5)MG/3ML NEB HHN SCH ×4 (01:54→20:27)
[2018-08-17 05:41] LABS: HEMATOCRIT. 37.7 % (36.0-48.0); HEMOGLOBIN. 12.9 g/dL (12.0-16.0); MEAN CORPUSCULAR HEMOGLOBIN 30.3 pg (28.0-32.0); MEAN CORPUSCULAR VOLUME 88.5 fL (81.0-99.0); MEAN PLATELET VOLUME 8.4 fl (7.4-10.4); PLATELET 59 x1000/uL (130-400); RED BLOOD CELL COUNT 4.26 mill/uL (4.2-5.4); RED CELL DISTRIBUTION WIDTH 17.1 % (11.6-14.6)
[2018-08-17] MEDS: INSULIN LISPRO 100 UNITS/ML SUBCUT SCH ×4 (06:00→17:45)
[2018-08-17] MEDS: CITRIC ACID/SODIUM CITRATE SOLN 30ML UDC PO SCH ×3 (08:14→17:39)
[2018-08-17] MEDS: ASCORBIC ACID 500 MG TABLET PO SCH ×2 (08:14→20:28)
[2018-08-17] MEDS: MEROPENEM 500MG in NORMAL SALINE 50ML IV SCH (08:14)
[2018-08-17] MEDS: ZINC SULFATE 220 MG ( 50 ) CAPSULE PO SCH (08:14)
[2018-08-17] MEDS: PANTOPRAZOLE 40MG DR TABLET PO SCH (08:14)
[2018-08-17] MEDS: NYSTATIN POWDER 15GM TOP SCH ×5 (08:15→20:33)
[2018-08-17 08:39] LABS: PLATELET ESTIMATE DECREASED
[2018-08-17] MEDS ORDERED: BISACODYL 5MG TABLET PO ONE (12:30)
[2018-08-17] MEDS ORDERED: BISACODYL 10MG SUPP PR NR (13:00)
[2018-08-17] MEDS: MORPHINE SULFATE 4 MG/ML CPJ (NOT FOR IM USE) IV PRN (16:15)
[2018-08-17] MEDS ORDERED: CEFTRIAXONE 1 G PREMIX 50 ML IV SCH (16:30)
[2018-08-17] MEDS: DEXT 10% WATER 1,000 ML IV SCH (17:44)
[2018-08-17] MEDS: METRONIDAZOLE 500MG TABLET PO SCH (18:25)
[2018-08-18] VITALS (17 sets, daily range): BP systolic 138–195; BP diastolic 60–109
[2018-08-18] MEDS: METOCLOPRAMIDE HCL 10MG/2ML VIAL IV SCH ×4 (00:50→17:57)
[2018-08-18] MEDS: IPRATROPIUM/ALBUTEROL 0.5-3(2.5)MG/3ML NEB HHN SCH ×4 (02:38→20:38)
[2018-08-18] MEDS: BLOOD SUGAR DIAGNOSTIC STRIP TEST SCH ×4 (06:00→17:59)
[2018-08-18] MEDS: INSULIN LISPRO 100 UNITS/ML SUBCUT SCH ×4 (06:00→18:00)
[2018-08-18 06:24] LABS: BASOPHILS % 0.2 % (0.0-2.0); HEMATOCRIT. 44.1 % (36.0-48.0); HEMOGLOBIN. 14.9 g/dL (12.0-16.0); LYMPHOCYTES % 9.7 % (20.0-50.0); MEAN CORPUSCULAR HEMOGLOBIN 30.3 pg (28.0-32.0); MEAN CORPUSCULAR VOLUME 89.5 fL (81.0-99.0); MEAN PLATELET VOLUME 9.4 fl (7.4-10.4); MONOCYTES % 2.3 % (2.0-8.0); NEUTROPHILS % 87.8 % (40.0-76.0); RED BLOOD CELL COUNT 4.93 mill/uL (4.2-5.4); RED CELL DISTRIBUTION WIDTH 17.3 % (11.6-14.6)
[2018-08-18 06:41] LABS: PLATELET 37 x1000/uL (130-400)
[2018-08-18 07:17] LABS: PHOSPHORUS 4.2 mg/dL (2.5-4.9)
[2018-08-18 07:46] LABS: BG BASE EXCESS -4.3 mmol/L (-2.0-2.0); BG CARBOXYHEMOGLOBIN 1.4 % (0.5-1.5); BG DEOXYHEMOGLOBIN 0.8 % (0.0-5.0); BG HCO3 ACT 18.5 mmol/L (22.0-26.0); BG METHEMOGLOBIN 0.3 % (0.0-1.5); BG OXYGEN SATURATION 99.2 % (92.0-98.5); BG OXYHEMOGLOBIN 97.5 % (94.0-97.0); BG PCO2 28.5 mmHg (35.0-45.0); BG PH 7.431 (7.350-7.450); BG PO2 164.5 mmHg (75.0-100.0); BG SAMPLE SITE RIGHT RADIAL; BG TIDAL VOLUME(mL) 400 mL; BG TOTAL HEMOGLOBIN 14.4 g/dL (12.0-18.0); BG VENT MODE VENT - A/C; BG VENT RATE 14 set
[2018-08-18] MEDS: CITRIC ACID/SODIUM CITRATE SOLN 30ML UDC PO SCH ×3 (08:38→17:57)
[2018-08-18] MEDS: METRONIDAZOLE 500MG TABLET PO SCH ×2 (08:38→21:53)
[2018-08-18] MEDS: ZINC SULFATE 220 MG ( 50 ) CAPSULE PO SCH (08:38)
[2018-08-18] MEDS: ASCORBIC ACID 500 MG TABLET PO SCH ×2 (08:38→21:53)
[2018-08-18] MEDS: PANTOPRAZOLE 40MG DR TABLET PO SCH (09:04)
[2018-08-18] MEDS: NYSTATIN POWDER 15GM TOP SCH ×5 (09:05→21:54)
[2018-08-18 09:28] LABS: PLATELET ESTIMATE MARKEDLY DECREASED
[2018-08-18] MEDS: CEFTRIAXONE 1 G PREMIX 50 ML IV SCH (17:57)
[2018-08-18] MEDS: DEXT 5%/0.2% NACL 1,000 ML IV SCH (17:57)
[2018-08-19] VITALS (12 sets, daily range): BP systolic 117–172; BP diastolic 51–83
[2018-08-19] MEDS: BLOOD SUGAR DIAGNOSTIC STRIP TEST SCH ×5 (00:11→23:57)
[2018-08-19] MEDS: METOCLOPRAMIDE HCL 10MG/2ML VIAL IV SCH ×5 (00:11→23:25)
[2018-08-19] MEDS: ACETAMINOPHEN 325MG TABLET PO PRN ×2 (00:23→23:26)
[2018-08-19] MEDS: ACETYLCYSTEINE 100MG/ML 10% VIAL 4ML INH SCH ×3 (00:38→14:20)
[2018-08-19] MEDS: IPRATROPIUM/ALBUTEROL 0.5-3(2.5)MG/3ML NEB HHN SCH ×5 (00:38→20:38)
[2018-08-19] MEDS: INSULIN LISPRO 100 UNITS/ML SUBCUT SCH ×4 (06:00→18:00)
[2018-08-19] MEDS: DEXT 5%/0.2% NACL 1,000 ML IV SCH ×2 (06:06→23:27)
[2018-08-19] MEDS: NYSTATIN POWDER 15GM TOP SCH ×4 (09:00→19:13)
[2018-08-19] MEDS: CITRIC ACID/SODIUM CITRATE SOLN 30ML UDC PO SCH ×3 (09:29→17:49)
[2018-08-19] MEDS: ASCORBIC ACID 500 MG TABLET PO SCH ×2 (09:29→23:25)
[2018-08-19] MEDS: ZINC SULFATE 220 MG ( 50 ) CAPSULE PO SCH (09:29)
[2018-08-19] MEDS: PANTOPRAZOLE 40MG DR TABLET PO SCH (09:29)
[2018-08-19] MEDS: METRONIDAZOLE 500MG TABLET PO SCH ×2 (09:29→23:25)
[2018-08-19] MEDS: MORPHINE SULFATE 4 MG/ML CPJ (NOT FOR IM USE) IV PRN ×2 (10:09→18:30)
[2018-08-19] MEDS: CEFTRIAXONE 1 G PREMIX 50 ML IV SCH (17:50)
[2018-08-19] MEDS: DEXTROSE 50% WATER 50ML SYRINGE IV PRN (23:57)
[2018-08-20] VITALS (23 sets, daily range): BP systolic 83–128; BP diastolic 45–71
[2018-08-20] MEDS: IPRATROPIUM/ALBUTEROL 0.5-3(2.5)MG/3ML NEB HHN SCH ×4 (00:04→20:42)
[2018-08-20] MEDS: ACETYLCYSTEINE 100MG/ML 10% VIAL 4ML INH SCH ×2 (00:04→14:39)
[2018-08-20] MEDS: INSULIN LISPRO 100 UNITS/ML SUBCUT SCH ×4 (06:00→18:00)
[2018-08-20] MEDS: BLOOD SUGAR DIAGNOSTIC STRIP TEST SCH ×3 (06:00→18:06)
[2018-08-20] MEDS: METOCLOPRAMIDE HCL 10MG/2ML VIAL IV SCH ×3 (07:04→18:06)
[2018-08-20 08:27] LABS: HEMATOCRIT. 39.4 % (36.0-48.0); HEMOGLOBIN. 13.1 g/dL (12.0-16.0); MEAN CORPUSCULAR HEMOGLOBIN 30.3 pg (28.0-32.0); MEAN CORPUSCULAR VOLUME 91.1 fL (81.0-99.0); MEAN PLATELET VOLUME 10.1 fl (7.4-10.4); RED BLOOD CELL COUNT 4.32 mill/uL (4.2-5.4); RED CELL DISTRIBUTION WIDTH 16.7 % (11.6-14.6)
[2018-08-20 09:03] LABS: PHOSPHORUS 2.8 mg/dL (2.5-4.9)
[2018-08-20] MEDS: CITRIC ACID/SODIUM CITRATE SOLN 30ML UDC PO SCH ×3 (09:23→18:06)
[2018-08-20] MEDS: ZINC SULFATE 220 MG ( 50 ) CAPSULE PO SCH (09:24)
[2018-08-20] MEDS: PANTOPRAZOLE 40MG DR TABLET PO SCH (09:24)
[2018-08-20] MEDS: METRONIDAZOLE 500MG TABLET PO SCH ×2 (09:24→22:13)
[2018-08-20] MEDS: ASCORBIC ACID 500 MG TABLET PO SCH ×2 (09:24→22:13)
[2018-08-20] MEDS: DEXT 5%/0.2% NACL 1,000 ML IV SCH (09:26)
[2018-08-20] MEDS: NYSTATIN POWDER 15GM TOP SCH ×5 (09:52→22:15)
[2018-08-20] MEDS ORDERED: SODIUM CHLORIDE 3% 500ML IV SOLN IV ONE (10:30)
[2018-08-20] MEDS ORDERED: SODIUM CHLORIDE 0.9% 500 ML IV ONE (10:45)
[2018-08-20] MEDS ORDERED: POTASSIUM CHLORIDE 20MEQ/PACKET PO NR (12:30)
[2018-08-20 14:32] LABS: PLATELET 19 x1000/uL (130-400); PLATELET ESTIMATE MARKEDLY DECREASED
[2018-08-20] MEDS: DEXT 5%/0.45% NACL 1000ML 1,000 ML IV SCH (15:49)
[2018-08-20] MEDS: CEFTRIAXONE 1 G PREMIX 50 ML IV SCH (18:06)
[2018-08-21] VITALS (16 sets, daily range): BP systolic 69–101; BP diastolic 31–63
[2018-08-21] MEDS: BLOOD SUGAR DIAGNOSTIC STRIP TEST SCH ×5 (00:37→23:44)
[2018-08-21] MEDS: IPRATROPIUM/ALBUTEROL 0.5-3(2.5)MG/3ML NEB HHN SCH ×4 (01:17→20:22)
[2018-08-21] MEDS: ACETYLCYSTEINE 100MG/ML 10% VIAL 4ML INH SCH ×2 (01:17→08:34)
[2018-08-21] MEDS: DEXT 5%/0.45% NACL 1000ML 1,000 ML IV SCH ×2 (02:14→17:14)
[2018-08-21 05:41] LABS: BASOPHILS % 0.2 % (0.0-2.0); HEMOGLOBIN. 13.1 g/dL (12.0-16.0); LYMPHOCYTES % 11.2 % (20.0-50.0); MEAN CORPUSCULAR HEMOGLOBIN 30.5 pg (28.0-32.0); MEAN CORPUSCULAR VOLUME 90.9 fL (81.0-99.0); MEAN PLATELET VOLUME 11.3 fl (7.4-10.4); MONOCYTES % 2.6 % (2.0-8.0); RED BLOOD CELL COUNT 4.29 mill/uL (4.2-5.4); RED CELL DISTRIBUTION WIDTH 17.1 % (11.6-14.6)
[2018-08-21] MEDS: INSULIN LISPRO 100 UNITS/ML SUBCUT SCH ×5 (06:00→23:44)
[2018-08-21] MEDS: METOCLOPRAMIDE HCL 10MG/2ML VIAL IV SCH ×5 (06:32→23:44)
[2018-08-21 07:34] LABS: CHLORIDE 106 mEq/L (98-107)
[2018-08-21 07:41] LABS: PHOSPHORUS 2.5 mg/dL (2.5-4.9)
[2018-08-21 08:18] LABS: PLATELET 26 x1000/uL (130-400)
[2018-08-21] MEDS: PANTOPRAZOLE 40MG DR TABLET PO SCH (09:18)
[2018-08-21] MEDS: ZINC SULFATE 220 MG ( 50 ) CAPSULE PO SCH (09:19)
[2018-08-21] MEDS: CITRIC ACID/SODIUM CITRATE SOLN 30ML UDC PO SCH ×3 (09:19→17:14)
[2018-08-21] MEDS: METRONIDAZOLE 500MG TABLET PO SCH ×2 (09:19→20:32)
[2018-08-21] MEDS: NYSTATIN POWDER 15GM TOP SCH ×5 (09:20→20:32)
[2018-08-21] MEDS: ASCORBIC ACID 500 MG TABLET PO SCH ×2 (09:20→20:32)
[2018-08-21] MEDS: CEFTRIAXONE 1 G PREMIX 50 ML IV SCH (17:14)
[2018-08-21] MEDS: MORPHINE SULFATE 4 MG/ML CPJ (NOT FOR IM USE) IV PRN (17:28)
[2018-08-21] MEDS: DEXTROSE 50% WATER 50ML SYRINGE IV PRN (23:44)
[2018-08-22] VITALS (13 sets, daily range): BP systolic 73–122; BP diastolic 31–70
[2018-08-22] MEDS: IPRATROPIUM/ALBUTEROL 0.5-3(2.5)MG/3ML NEB HHN SCH ×3 (01:18→20:37)
[2018-08-22] MEDS: MORPHINE SULFATE 4 MG/ML CPJ (NOT FOR IM USE) IV PRN (03:31)
[2018-08-22] MEDS: DEXTROSE 50% WATER 50ML SYRINGE IV PRN ×2 (05:51→17:29)
[2018-08-22] MEDS: INSULIN LISPRO 100 UNITS/ML SUBCUT SCH ×3 (05:51→17:41)
[2018-08-22] MEDS: BLOOD SUGAR DIAGNOSTIC STRIP TEST SCH ×3 (05:51→17:41)
[2018-08-22] MEDS: METOCLOPRAMIDE HCL 10MG/2ML VIAL IV SCH ×3 (05:51→17:28)
[2018-08-22] MEDS: PANTOPRAZOLE 40MG DR TABLET PO SCH (06:34)
[2018-08-22 07:05] LABS: BASOPHILS % 0.4 % (0.0-2.0); EOSINOPHILS % 0.3 % (0.0-5.0); HEMATOCRIT. 33.7 % (36.0-48.0); HEMOGLOBIN. 11.7 g/dL (12.0-16.0); LYMPHOCYTES % 15.3 % (20.0-50.0); MEAN CORPUSCULAR HEMOGLOBIN 31.4 pg (28.0-32.0); MEAN CORPUSCULAR VOLUME 90.2 fL (81.0-99.0); MEAN PLATELET VOLUME 11.5 fl (7.4-10.4); MONOCYTES % 2.6 % (2.0-8.0); NEUTROPHILS % 81.4 % (40.0-76.0); RED BLOOD CELL COUNT 3.73 mill/uL (4.2-5.4); RED CELL DISTRIBUTION WIDTH 16.9 % (11.6-14.6)
[2018-08-22 07:26] LABS: PHOSPHORUS 2.3 mg/dL (2.5-4.9)
[2018-08-22] MEDS ORDERED: MAGNESIUM 2 G PREMIX 50 ML IV NR (08:00)
[2018-08-22] MEDS: DEXT 5%/0.9% NACL 1,000 ML IV SCH (08:22)
[2018-08-22 08:26] LABS: PLATELET 24 x1000/uL (130-400)
[2018-08-22 08:27] LABS: PLATELET ESTIMATE MARKEDLY DECREASED
[2018-08-22] MEDS ORDERED: SODIUM PHOS,M-BASIC-D-BASIC 15 MM in DEXT 5% WATER 245 ML IV NR (09:00)
[2018-08-22] MEDS: ZINC SULFATE 220 MG ( 50 ) CAPSULE PO SCH (09:28)
[2018-08-22] MEDS: CITRIC ACID/SODIUM CITRATE SOLN 30ML UDC PO SCH ×3 (09:28→17:27)
[2018-08-22] MEDS: METRONIDAZOLE 500MG TABLET PO SCH ×2 (09:29→20:32)
[2018-08-22] MEDS: ASCORBIC ACID 500 MG TABLET PO SCH ×2 (09:29→20:32)
[2018-08-22] MEDS: NYSTATIN POWDER 15GM TOP SCH ×5 (09:37→21:57)
[2018-08-22] MEDS: MIDODRINE HCL 5MG TABLET PO SCH ×2 (12:41→17:29)
[2018-08-22] MEDS: MAGNESIUM OXIDE 400MG TABLET GT SCH (12:42)
[2018-08-22] MEDS: CEFTRIAXONE 1 G PREMIX 50 ML IV SCH (17:29)
[2018-08-23] VITALS (9 sets, daily range): BP systolic 77–124; BP diastolic 39–69
[2018-08-23] MEDS: BLOOD SUGAR DIAGNOSTIC STRIP TEST SCH ×3 (00:21→12:19)
[2018-08-23] MEDS: METOCLOPRAMIDE HCL 10MG/2ML VIAL IV SCH ×2 (00:28→06:12)
[2018-08-23] MEDS: DEXTROSE 50% WATER 50ML SYRINGE IV PRN ×2 (00:28→06:12)
[2018-08-23] MEDS: IPRATROPIUM/ALBUTEROL 0.5-3(2.5)MG/3ML NEB HHN SCH ×2 (02:29→09:03)
[2018-08-23] MEDS: DEXT 5%/0.9% NACL 1,000 ML IV SCH (05:58)
[2018-08-23] MEDS: INSULIN LISPRO 100 UNITS/ML SUBCUT SCH ×2 (06:00)
[2018-08-23 06:40] LABS: BASOPHILS % 0.9 % (0.0-2.0); EOSINOPHILS % 0.8 % (0.0-5.0); HEMATOCRIT. 37.9 % (36.0-48.0); HEMOGLOBIN. 13.3 g/dL (12.0-16.0); LYMPHOCYTES % 15.8 % (20.0-50.0); MEAN CORPUSCULAR HEMOGLOBIN 31.5 pg (28.0-32.0); MEAN CORPUSCULAR VOLUME 89.9 fL (81.0-99.0); MEAN PLATELET VOLUME 12.5 fl (7.4-10.4); MONOCYTES % 1.8 % (2.0-8.0); NEUTROPHILS % 80.7 % (40.0-76.0); RED BLOOD CELL COUNT 4.22 mill/uL (4.2-5.4); RED CELL DISTRIBUTION WIDTH 16.9 % (11.6-14.6)
[2018-08-23] MEDS: CITRIC ACID/SODIUM CITRATE SOLN 30ML UDC PO SCH ×2 (08:48→12:00)
[2018-08-23] MEDS: ASCORBIC ACID 500 MG TABLET PO SCH (08:49)
[2018-08-23] MEDS: ZINC SULFATE 220 MG ( 50 ) CAPSULE PO SCH (08:49)
[2018-08-23] MEDS: MIDODRINE HCL 5MG TABLET PO SCH ×2 (08:49→12:01)
[2018-08-23] MEDS: MAGNESIUM OXIDE 400MG TABLET GT SCH (08:49)
[2018-08-23] MEDS: PANTOPRAZOLE 40MG DR TABLET PO SCH (08:49)
[2018-08-23] MEDS: METRONIDAZOLE 500MG TABLET PO SCH (08:49)
[2018-08-23] MEDS: NYSTATIN POWDER 15GM TOP SCH ×3 (08:50→12:03)
[2018-08-23 08:59] LABS: PLATELET 33 x1000/uL (130-400)
[2018-08-23] MEDS ORDERED: METOCLOPRAMIDE HCL 10MG/2ML VIAL IV SCH (12:00)
== END 2018-08-23 15:25 | DRG 3 ==
LOC: ER 13:01 → SUPCPDRO 15:32 → 5EST 16:27 → EDBEDREQ 16:30 → ENRESERV 21:00 → CVICU 08-05 18:00 → 5EST 08-17 19:30
PROVIDERS: ADMIT Internal Medicine; ATTEND Internal Medicine
PROC: 02HV33Z Insertion of Infusion Device into Superior Vena Cava, Percutaneous Approach (ICD-10-PCS; 2018-07-26)
PROC: B5181ZA Fluoroscopy of Superior Vena Cava using Low Osmolar Contrast, Guidance (ICD-10-PCS; 2018-07-26)
PROC: B548ZZA Ultrasonography of Superior Vena Cava, Guidance (ICD-10-PCS; 2018-07-26)
PROC: 0DJ08ZZ Inspection of Upper Intestinal Tract, Via Natural or Artificial Opening Endoscopic (ICD-10-PCS; 2018-07-31)
PROC: 30233N1 Transfusion of Nonautologous Red Blood Cells into Peripheral Vein, Percutaneous Approach (ICD-10-PCS; 2018-08-01)
PROC: 30233K1 Transfusion of Nonautologous Frozen Plasma into Peripheral Vein, Percutaneous Approach (ICD-10-PCS; 2018-08-03)
PROC: 5A1955Z Respiratory Ventilation, Greater than 96 Consecutive Hours (ICD-10-PCS; principal; 2018-08-05)
PROC: 0BH17EZ Insertion of Endotracheal Airway into Trachea, Via Natural or Artificial Opening (ICD-10-PCS; 2018-08-05)
PROC: 5A12012 Performance of Cardiac Output, Single, Manual (ICD-10-PCS; 2018-08-05)
PROC: 4A00X4Z Measurement of Central Nervous Electrical Activity, External Approach (ICD-10-PCS; 2018-08-11)
PROC: 0B110F4 Bypass Trachea to Cutaneous with Tracheostomy Device, Open Approach (ICD-10-PCS; 2018-08-14)
PROC: 0GBJ0ZZ Excision of Thyroid Gland Isthmus, Open Approach (ICD-10-PCS; 2018-08-14)
PROC: 30233R1 Transfusion of Nonautologous Platelets into Peripheral Vein, Percutaneous Approach (ICD-10-PCS; 2018-08-14)
PROC: 0DH63UZ Insertion of Feeding Device into Stomach, Percutaneous Approach (ICD-10-PCS; 2018-08-16)
DX: A41.9 Sepsis, unspecified organism (principal); G92 Toxic encephalopathy; E43 Unspecified severe protein-calorie malnutrition; I46.9 Cardiac arrest, cause unspecified; D65 Disseminated intravascular coagulation [defibrination syndrome]; J69.0 Pneumonitis due to inhalation of food and vomit; N17.0 Acute kidney failure with tubular necrosis; Q39.4 Esophageal web; R57.1 Hypovolemic shock; R65.21 Severe sepsis with septic shock; J96.01 Acute respiratory failure with hypoxia; N39.0 Urinary tract infection, site not specified; D68.59 Other primary thrombophilia; E11.52 Type 2 diabetes mellitus with diabetic peripheral angiopathy with gangrene; E87.1 Hypo-osmolality and hyponatremia; E87.2 Acidosis; I82.412 Acute embolism and thrombosis of left femoral vein; K22.10 Ulcer of esophagus without bleeding; K31.1 Adult hypertrophic pyloric stenosis; Z66 Do not resuscitate; D63.8 Anemia in other chronic diseases classified elsewhere; E87.5 Hyperkalemia; E83.51 Hypocalcemia; L89.90 Pressure ulcer of unspecified site, unspecified stage; D50.9 Iron deficiency anemia, unspecified; E11.649 Type 2 diabetes mellitus with hypoglycemia without coma; E83.42 Hypomagnesemia; E87.6 Hypokalemia; E87.70 Fluid overload, unspecified; F03.90 Unspecified dementia, unspecified severity, without behavioral disturbance, psychotic disturbance, mood disturbance, and anxiety; F17.200 Nicotine dependence, unspecified, uncomplicated; I10 Essential (primary) hypertension; I25.10 Atherosclerotic heart disease of native coronary artery without angina pectoris; I48.0 Paroxysmal atrial fibrillation; I48.2 Chronic atrial fibrillation; J44.9 Chronic obstructive pulmonary disease, unspecified; L89.609 Pressure ulcer of unspecified heel, unspecified stage; Z51.5 Encounter for palliative care; K29.70 Gastritis, unspecified, without bleeding; S51.812A Laceration without foreign body of left forearm, initial encounter; X58.XXXA Exposure to other specified factors, initial encounter; M06.9 Rheumatoid arthritis, unspecified; M19.90 Unspecified osteoarthritis, unspecified site; R62.7 Adult failure to thrive; T38.0X5A Adverse effect of glucocorticoids and synthetic analogues, initial encounter; Z74.01 Bed confinement status; Z78.1 Physical restraint status; Z80.3 Family history of malignant neoplasm of breast; Z82.0 Family history of epilepsy and other diseases of the nervous system; Z82.49 Family history of ischemic heart disease and other diseases of the circulatory system; Z83.3 Family history of diabetes mellitus; Z89.519 Acquired absence of unspecified leg below knee; Z89.611 Acquired absence of right leg above knee; Z68.21 Body mass index [BMI] 21.0-21.9, adult; Z79.899 Other long term (current) drug therapy; Y93.89 Activity, other specified; Y92.89 Other specified places as the place of occurrence of the external cause; Y99.8 Other external cause status
CPT/HCPCS: 36415; 36569; 36573; 36600; 71045; 74018; 76770; 80048; 80061; 80076; 80202; 82140; 82248; 82375; 82542; 82550; 82553; 82607; 82728; 82746; 82805; 82962; 83036; 83540; 83550; 83605; 83735; 83880; 84100; 84132; 84134; 84145; 84439; 84443; 84478; 84481; 84484; 85014; 85018; 85027; 85651; 86022; 86140; 86850; 86880; 86900; 86920; 86927; 87070; 87106; 92610; 93005; 93970; 94003; 94640; 96365; 96366; 96375; 99291; A6261; C1725; J0282; J0696; J1265; J1650; J1940; J2060; J2185; J2250; J2270; J2370; J2405; J2543; J2704; J2765; J3010; J3370; J3430; J3475; J3480; J3490; J7030; J7040; J7042; J7050; J7060; J7070; J7608; J7620; P9016; P9017; P9021; P9034; P9047; A4315